=== PATIENT | female | born 1950 | race Caucasian/White ===

== ENCOUNTER 2018-05-15 10:03 | Inpatient (IN) | payer OTHER ==
[2018-05-15 10:37] LABS: ADD MAN DIFF? NO
[2018-05-15 10:44] LABS: WHITE BLOOD COUNT 7.4 10^3/ul (4.8-10.8)
[2018-05-15 10:44] LABS: BASOPHIL # 0.1 10^3/ul (0.0-0.1); BASOPHILS % 0.7 % (0.0-2.0); EOSINOPHILS # 0.3 10^3/ul (0.0-0.5); EOSINOPHILS % 3.4 % (0.0-7.0); HEMATOCRIT 43.4 % (37.0-47.0); HEMOGLOBIN 13.3 g/dl (12.0-16.0); LYMPHOCYTES # 2.3 10^3/ul (0.8-2.9); LYMPHOCYTES % 31.8 % (15.0-51.0); MEAN CORPUSCULAR HEMOGLOBIN 28.9 pg (29.0-33.0); MEAN CORPUSCULAR HGB CONC 30.6 g/dl (32.0-37.0); MEAN CORPUSCULAR VOLUME 94.3 fl (82.0-101.0); MEAN PLATELET VOLUME 10.3 fl (7.4-10.4); MONOCYTE # 0.5 10^3/ul (0.3-0.9); MONOCYTES % 6.4 % (0.0-11.0); NEUTROPHIL # 4.2 10^3/ul (1.6-7.5); NEUTROPHILS % 57.4 % (39.0-77.0); PLATELET COUNT 287 10^3/UL (140-415); RED CELL DISTRIBUTION WIDTH 13.5 % (11.5-14.5)
[2018-05-15] MEDS: SOD CHLORIDE 0.9% 1,000 ML IV ×2 (10:47→18:46)
[2018-05-15 11:03] LABS: ALBUMIN 4.3 g/dl (3.3-4.9); ALKALINE PHOSPHATASE 99 IU/L (42-121); ANION GAP 10 (5-13); ASPARTATE AMINO TRANSFERASE 19 IU/L (15-46); BILIRUBIN,INDIRECT 0.1 mg/dl (0-1.1); BILIRUBIN,TOTAL 0.1 mg/dl (0.2-1.3); BLOOD UREA NITROGEN 15 mg/dl (7-20); CALCIUM 10.7 mg/dl (8.4-10.2); CARBON DIOXIDE 28 mmol/L (21-31); CHLORIDE 107 mmol/L (97-110); CREATININE 0.77 mg/dl (0.44-1.00); Estimated GFR > 60 mL/min (>60); GLUCOSE 110 mg/dl (70-220); POTASSIUM 3.8 mmol/L (3.5-5.1); SODIUM 145 mmol/L (135-144); TOTAL PROTEIN 8.6 g/dl (6.1-8.1)
[2018-05-15 11:05] LABS: ACETAMINOPHEN < 10.0 ug/ml (10.0-30.0); ALANINE AMINOTRANSFERASE < 6 IU/L (13-69); ETHANOL < 10.0 mg/dl (0-0); SALICYLATE < 1.0 mg/dl (5.0-30.0)
[2018-05-15 11:19] LABS: ADD UMIC YES; UR ASCORBIC ACID 20 mg/dL (NEGATIVE); UR BACTERIA FEW /HPF (NONE SEEN); UR BILIRUBIN (Dip) NEGATIVE (NEGATIVE); UR BLOOD (Dip) 1+ mg/dL (NEGATIVE); UR BUDDING YEAST FEW /HPF (NONE SEEN); UR CLARITY CLOUDY (CLEAR); UR COLOR YELLOW (YELLOW); UR GLUCOSE (Dip) NEGATIVE (NEGATIVE); UR KETONES (Dip) NEGATIVE (NEGATIVE); UR LEUKOCYTE ESTERASE (Dip) 3+ Leu/ul (NEGATIVE); UR MUCUS FEW /HPF (NONE SEEN); UR NITRITE (Dip) NEGATIVE (NEGATIVE); UR RBC 18 /HPF (0-5); UR SPECIFIC GRAVITY (Dip) 1.014 (1.003-1.030); UR TOTAL PROTEIN (Dip) 2+ mg/dl (NEGATIVE); UR UROBILINOGEN (Dip) NEGATIVE (NEGATIVE); UR WBC > 182 /HPF (0-5)
[2018-05-15] MEDS ORDERED: CEFTRIAXONE 1 GM INJ IM (11:30)
[2018-05-15 11:36] LABS: FREE THYROXINE INDEX (Calc) 2.43 ug/ml (0.65-3.89); T3 UPTAKE 28.2 % (23.5-40.5); T4 (THYROXINE) 8.6 ug/dl (5.5-11.0)
[2018-05-15 11:41] LABS: AMPHETAMINE/METHAMPHETAMINE Negative (NEGATIVE); BARBITURATES Positive (NEGATIVE); BENZODIAZEPINES Negative (NEGATIVE); CANNABINOIDS Negative (NEGATIVE); COCAINE Negative (NEGATIVE); OPIATES Negative (NEGATIVE)
[2018-05-15] MEDS: morphine 2 MG INJ IV (11:50)
[2018-05-15] MEDS: CEFTRIAXONE 1 GM/50 ML (PMX) 50 ML IVPB (11:51)
[2018-05-15] MEDS: AZITHROMYCIN 500MG/NS (PMX) 250 ML IVPB (12:18)
[2018-05-15] MEDS ORDERED: ONDANSETRON 4 MG INJ IV ×2 (13:30→14:30)
[2018-05-15] MEDS ORDERED: ACETAMINOPHEN 325 MG TAB PO (13:30)
[2018-05-15] MEDS ORDERED: NACL 0.9% 3 ML SYG IV (14:30)
[2018-05-15] MEDS ORDERED: PENDING SANTYL ORDER FOR WOUND CARE XX (17:00)
[2018-05-15] MEDS: RIVAROXABAN 20 MG TABLET PO (17:38)
[2018-05-15 17:56] LABS: LACTIC ACID 2.4 mmol/L (0.5-2.0)
[2018-05-15] MEDS: CALCIUM CARBONATE 1.25 GM TAB PO (20:54)
[2018-05-15] MEDS: ACETAMINOPHEN 325 MG TAB PO (20:54)
[2018-05-15] MEDS: QUETIAPINE 25 MG TAB PO (20:54)
[2018-05-15] MEDS: PRIMIDONE 50 MG TAB PO (20:54)
[2018-05-15] MEDS: LEVETIRACETAM 500 MG TAB PO (20:54)
[2018-05-15] MEDS: SENNA TAB PO (20:54)
[2018-05-15] MEDS: BACLOFEN 10 MG TAB PO (20:54)
[2018-05-16] MEDS: ACETAMINOPHEN 325 MG TAB PO ×2 (03:57→13:00)
[2018-05-16 05:46] LABS: ADD MAN DIFF? NO
[2018-05-16 05:52] LABS: BASOPHIL # 0.1 10^3/ul (0.0-0.1); BASOPHILS % 1.1 % (0.0-2.0); EOSINOPHILS # 0.3 10^3/ul (0.0-0.5); EOSINOPHILS % 4.8 % (0.0-7.0); HEMATOCRIT 36.3 % (37.0-47.0); HEMOGLOBIN 11.3 g/dl (12.0-16.0); LYMPHOCYTES # 2.1 10^3/ul (0.8-2.9); LYMPHOCYTES % 32.4 % (15.0-51.0); MEAN CORPUSCULAR HGB CONC 31.1 g/dl (32.0-37.0); MEAN CORPUSCULAR VOLUME 93.3 fl (82.0-101.0); MEAN PLATELET VOLUME 10.1 fl (7.4-10.4); MONOCYTE # 0.4 10^3/ul (0.3-0.9); MONOCYTES % 5.9 % (0.0-11.0); NEUTROPHIL # 3.5 10^3/ul (1.6-7.5); NEUTROPHILS % 55.3 % (39.0-77.0); PLATELET COUNT 271 10^3/UL (140-415); RED BLOOD COUNT 3.89 10^6/ul (4.20-5.40); RED CELL DISTRIBUTION WIDTH 13.5 % (11.5-14.5)
[2018-05-16 05:52] LABS: WHITE BLOOD COUNT 6.4 10^3/ul (4.8-10.8)
[2018-05-16 06:24] LABS: CHOL/HDL RATIO 4.5 RATIO; CHOLESTEROL 206 mg/dl (100-200); HDL CHOLESTEROL 45 mg/dl (33-92); LDL CHOLESTEROL,CALCULATED 140 mg/dl; MAGNESIUM 1.9 mg/dl (1.7-2.5); TRIGLYCERIDES 107 mg/dl (0-149)
[2018-05-16 06:24] LABS: PHOSPHORUS 4.1 mg/dl (2.5-4.9)
[2018-05-16 06:32] LABS: ALANINE AMINOTRANSFERASE 12 IU/L (13-69); ALBUMIN 3.5 g/dl (3.3-4.9); ALBUMIN/GLOBULIN RATIO 0.94; ALKALINE PHOSPHATASE 71 IU/L (42-121); ANION GAP 5 (5-13); ASPARTATE AMINO TRANSFERASE 15 IU/L (15-46); BLOOD UREA NITROGEN 13 mg/dl (7-20); CALCIUM 9.4 mg/dl (8.4-10.2); CARBON DIOXIDE 26 mmol/L (21-31); CHLORIDE 116 mmol/L (97-110); Estimated GFR > 60 mL/min (>60); GLUCOSE 104 mg/dl (70-220); POTASSIUM 3.7 mmol/L (3.5-5.1); SODIUM 147 mmol/L (135-144); TOTAL PROTEIN 7.2 g/dl (6.1-8.1)
[2018-05-16] MEDS: CALCIUM CARBONATE 1.25 GM TAB PO ×2 (08:45→21:06)
[2018-05-16] MEDS: LEVETIRACETAM 500 MG TAB PO ×2 (08:45→21:07)
[2018-05-16] MEDS: BACLOFEN 10 MG TAB PO ×3 (08:45→21:07)
[2018-05-16] MEDS: SENNA TAB PO ×2 (08:45→21:07)
[2018-05-16] MEDS: QUETIAPINE 25 MG TAB PO ×2 (08:45→21:07)
[2018-05-16] MEDS: DULOXETINE 30 MG CAP DR PO (08:45)
[2018-05-16] MEDS: SOD CHLORIDE 0.9% 1,000 ML IV (10:33)
[2018-05-16] MEDS ORDERED: ASPIRIN 81 MG TAB PO (12:00)
[2018-05-16] MEDS: CEFTRIAXONE 1 GM/50 ML (PMX) 50 ML IVPB (12:57)
[2018-05-16] MEDS: AZITHROMYCIN 500MG/NS (PMX) 250 ML IVPB (13:57)
[2018-05-16] MEDS: RIVAROXABAN 20 MG TABLET PO (18:05)
[2018-05-16] MEDS: PRIMIDONE 50 MG TAB PO (21:07)
[2018-05-16] MEDS: ATORVASTATIN 40 MG TAB PO (21:07)
[2018-05-17] MEDS: ACETAMINOPHEN 325 MG TAB PO (02:25)
[2018-05-17 06:26] LABS: ADD MAN DIFF? NO
[2018-05-17 06:29] LABS: BASOPHILS % 0.8 % (0.0-2.0); EOSINOPHILS # 0.2 10^3/ul (0.0-0.5); EOSINOPHILS % 4.5 % (0.0-7.0); HEMATOCRIT 33.2 % (37.0-47.0); HEMOGLOBIN 10.5 g/dl (12.0-16.0); LYMPHOCYTES # 1.8 10^3/ul (0.8-2.9); LYMPHOCYTES % 33.6 % (15.0-51.0); MEAN CORPUSCULAR HEMOGLOBIN 29.6 pg (29.0-33.0); MEAN CORPUSCULAR HGB CONC 31.6 g/dl (32.0-37.0); MEAN CORPUSCULAR VOLUME 93.5 fl (82.0-101.0); MEAN PLATELET VOLUME 10.3 fl (7.4-10.4); MONOCYTE # 0.4 10^3/ul (0.3-0.9); MONOCYTES % 7.4 % (0.0-11.0); NEUTROPHIL # 2.8 10^3/ul (1.6-7.5); NEUTROPHILS % 53.5 % (39.0-77.0); PLATELET COUNT 256 10^3/UL (140-415); RED BLOOD COUNT 3.55 10^6/ul (4.20-5.40); RED CELL DISTRIBUTION WIDTH 12.9 % (11.5-14.5)
[2018-05-17 06:29] LABS: WHITE BLOOD COUNT 5.3 10^3/ul (4.8-10.8)
[2018-05-17 06:57] LABS: ANION GAP 4 (5-13); BLOOD UREA NITROGEN 13 mg/dl (7-20); CARBON DIOXIDE 27 mmol/L (21-31); CHLORIDE 113 mmol/L (97-110); CREATININE 0.55 mg/dl (0.44-1.00); Estimated GFR > 60 mL/min (>60); GLUCOSE 92 mg/dl (70-220); POTASSIUM 3.4 mmol/L (3.5-5.1); SODIUM 144 mmol/L (135-144)
[2018-05-17] MEDS: BACLOFEN 10 MG TAB PO ×3 (09:41→21:49)
[2018-05-17] MEDS: LEVETIRACETAM 500 MG TAB PO ×2 (09:41→21:50)
[2018-05-17] MEDS: DULOXETINE 30 MG CAP DR PO (09:41)
[2018-05-17] MEDS: QUETIAPINE 25 MG TAB PO ×2 (09:42→21:50)
[2018-05-17] MEDS: CALCIUM CARBONATE 1.25 GM TAB PO ×2 (09:42→21:50)
[2018-05-17] MEDS: SENNA TAB PO ×2 (09:42→21:49)
[2018-05-17] MEDS: AZITHROMYCIN 500MG/NS (PMX) 250 ML IVPB (11:37)
[2018-05-17] MEDS: CEFTRIAXONE 1 GM/50 ML (PMX) 50 ML IVPB (13:04)
[2018-05-17] MEDS: RIVAROXABAN 20 MG TABLET PO (18:18)
[2018-05-17] MEDS: POTASSIUM CHLORIDE (SR) 20 MEQ TAB PO (18:18)
[2018-05-17] MEDS: PRIMIDONE 50 MG TAB PO (21:50)
[2018-05-17] MEDS: ATORVASTATIN 40 MG TAB PO (21:50)
[2018-05-18 07:07] LABS: ANION GAP 6 (5-13); BLOOD UREA NITROGEN 11 mg/dl (7-20); CALCIUM 9.2 mg/dl (8.4-10.2); CARBON DIOXIDE 27 mmol/L (21-31); CHLORIDE 110 mmol/L (97-110); CREATININE 0.51 mg/dl (0.44-1.00); Estimated GFR > 60 mL/min (>60); GLUCOSE 90 mg/dl (70-220); POTASSIUM 3.7 mmol/L (3.5-5.1); SODIUM 143 mmol/L (135-144)
[2018-05-18] MEDS: DULOXETINE 30 MG CAP DR PO (09:51)
[2018-05-18] MEDS: LEVETIRACETAM 500 MG TAB PO ×2 (09:51→21:30)
[2018-05-18] MEDS: SENNA TAB PO ×2 (09:52→21:30)
[2018-05-18] MEDS: QUETIAPINE 25 MG TAB PO ×2 (09:52→21:31)
[2018-05-18] MEDS: CALCIUM CARBONATE 1.25 GM TAB PO ×2 (09:52→21:30)
[2018-05-18] MEDS: BACLOFEN 10 MG TAB PO ×3 (09:52→21:30)
[2018-05-18] MEDS: MEROPENEM 1 GM/50ML(PMX) 50 ML IVPB ×2 (13:09→21:30)
[2018-05-18 13:43] LABS: ADD UMIC YES; UR ASCORBIC ACID NEGATIVE (NEGATIVE); UR BACTERIA FEW /HPF (NONE SEEN); UR BILIRUBIN (Dip) NEGATIVE (NEGATIVE); UR BLOOD (Dip) 1+ mg/dL (NEGATIVE); UR CLARITY SLIGHTLY CLOUDY (CLEAR); UR COLOR YELLOW (YELLOW); UR GLUCOSE (Dip) NEGATIVE (NEGATIVE); UR KETONES (Dip) NEGATIVE (NEGATIVE); UR LEUKOCYTE ESTERASE (Dip) 3+ Leu/ul (NEGATIVE); UR MUCUS FEW /HPF (NONE SEEN); UR NITRITE (Dip) NEGATIVE (NEGATIVE); UR RBC 31 /HPF (0-5); UR SPECIFIC GRAVITY (Dip) 1.015 (1.003-1.030); UR TOTAL PROTEIN (Dip) NEGATIVE (NEGATIVE); UR UROBILINOGEN (Dip) NEGATIVE (NEGATIVE); UR WBC 115 /HPF (0-5)
[2018-05-18] MEDS: RIVAROXABAN 20 MG TABLET PO (17:45)
[2018-05-18] MEDS: ACETAMINOPHEN 325 MG TAB PO (17:45)
[2018-05-18] MEDS: PHENAZOPYRIDINE 100 MG TAB PO (17:50)
[2018-05-18] MEDS: ATORVASTATIN 40 MG TAB PO (21:30)
[2018-05-18] MEDS: PRIMIDONE 50 MG TAB PO (21:30)
[2018-05-19] MEDS: MEROPENEM 1 GM/50ML(PMX) 50 ML IVPB ×3 (05:15→22:04)
[2018-05-19 05:49] LABS: ADD MAN DIFF? NO
[2018-05-19 05:53] LABS: BASOPHILS % 0.5 % (0.0-2.0); EOSINOPHILS # 0.2 10^3/ul (0.0-0.5); EOSINOPHILS % 3.7 % (0.0-7.0); LYMPHOCYTES # 2.4 10^3/ul (0.8-2.9); LYMPHOCYTES % 42.7 % (15.0-51.0); MEAN CORPUSCULAR HEMOGLOBIN 28.8 pg (29.0-33.0); MEAN CORPUSCULAR HGB CONC 31.4 g/dl (32.0-37.0); MEAN CORPUSCULAR VOLUME 91.6 fl (82.0-101.0); MEAN PLATELET VOLUME 10.2 fl (7.4-10.4); MONOCYTE # 0.4 10^3/ul (0.3-0.9); MONOCYTES % 6.4 % (0.0-11.0); NEUTROPHIL # 2.6 10^3/ul (1.6-7.5); NEUTROPHILS % 46.3 % (39.0-77.0); PLATELET COUNT 278 10^3/UL (140-415); RED BLOOD COUNT 3.82 10^6/ul (4.20-5.40); RED CELL DISTRIBUTION WIDTH 13.2 % (11.5-14.5)
[2018-05-19 05:53] LABS: WHITE BLOOD COUNT 5.7 10^3/ul (4.8-10.8)
[2018-05-19 06:26] LABS: ANION GAP 6 (5-13); BLOOD UREA NITROGEN 11 mg/dl (7-20); CARBON DIOXIDE 26 mmol/L (21-31); CHLORIDE 109 mmol/L (97-110); Estimated GFR > 60 mL/min (>60); GLUCOSE 89 mg/dl (70-220); POTASSIUM 3.6 mmol/L (3.5-5.1); SODIUM 141 mmol/L (135-144)
[2018-05-19] MEDS: BACLOFEN 10 MG TAB PO ×3 (09:48→21:43)
[2018-05-19] MEDS: SENNA TAB PO ×2 (09:48→21:42)
[2018-05-19] MEDS: QUETIAPINE 25 MG TAB PO ×2 (09:50→21:42)
[2018-05-19] MEDS: DULOXETINE 30 MG CAP DR PO (09:51)
[2018-05-19] MEDS: LEVETIRACETAM 500 MG TAB PO ×2 (09:51→21:42)
[2018-05-19] MEDS: CALCIUM CARBONATE 1.25 GM TAB PO ×2 (09:51→21:42)
[2018-05-19] MEDS: RIVAROXABAN 20 MG TABLET PO (18:21)
[2018-05-19] MEDS: ATORVASTATIN 40 MG TAB PO (21:42)
[2018-05-19] MEDS: PRIMIDONE 50 MG TAB PO (21:42)
[2018-05-20] MEDS ORDERED: GLUCOSE GEL 15 GRAM TUBE PO ×2 (02:30)
[2018-05-20] MEDS ORDERED: GLUCOSE GEL 15 GRAM TUBE BUCCAL (02:30)
[2018-05-20] MEDS ORDERED: INSULIN ASPART [NOVOLOG] 3 ML PEN SC (02:30)
[2018-05-20] MEDS ORDERED: DEXTROSE 50% 50 ML SYRINGE IV ×2 (02:30)
[2018-05-20] MEDS ORDERED: Insulin NOVOLOG SS MODERATE Algorithm(NPO/TPN/ENTERAL FEEDS) SC (02:30)
[2018-05-20] MEDS ORDERED: GLUCAGON 1 MG INJ IM (02:30)
[2018-05-20] MEDS: MEROPENEM 1 GM/50ML(PMX) 50 ML IVPB (05:32)
[2018-05-20 06:12] LABS: ADD MAN DIFF? NO
[2018-05-20 06:16] LABS: BASOPHIL # 0.1 10^3/ul (0.0-0.1); BASOPHILS % 0.8 % (0.0-2.0); EOSINOPHILS # 0.2 10^3/ul (0.0-0.5); EOSINOPHILS % 2.9 % (0.0-7.0); HEMATOCRIT 35.5 % (37.0-47.0); HEMOGLOBIN 11.5 g/dl (12.0-16.0); LYMPHOCYTES # 2.2 10^3/ul (0.8-2.9); LYMPHOCYTES % 34.2 % (15.0-51.0); MEAN CORPUSCULAR HEMOGLOBIN 29.4 pg (29.0-33.0); MEAN CORPUSCULAR HGB CONC 32.4 g/dl (32.0-37.0); MEAN CORPUSCULAR VOLUME 90.8 fl (82.0-101.0); MEAN PLATELET VOLUME 9.9 fl (7.4-10.4); MONOCYTE # 0.4 10^3/ul (0.3-0.9); MONOCYTES % 5.6 % (0.0-11.0); NEUTROPHIL # 3.6 10^3/ul (1.6-7.5); NEUTROPHILS % 56.2 % (39.0-77.0); PLATELET COUNT 275 10^3/UL (140-415); RED BLOOD COUNT 3.91 10^6/ul (4.20-5.40); RED CELL DISTRIBUTION WIDTH 13.4 % (11.5-14.5)
[2018-05-20 06:16] LABS: WHITE BLOOD COUNT 6.5 10^3/ul (4.8-10.8)
[2018-05-20 06:40] LABS: ANION GAP 5 (5-13); BLOOD UREA NITROGEN 9 mg/dl (7-20); CARBON DIOXIDE 27 mmol/L (21-31); CHLORIDE 106 mmol/L (97-110); CREATININE 0.52 mg/dl (0.44-1.00); Estimated GFR > 60 mL/min (>60); GLUCOSE 87 mg/dl (70-220); POTASSIUM 3.9 mmol/L (3.5-5.1); SODIUM 138 mmol/L (135-144)
[2018-05-20] MEDS: QUETIAPINE 25 MG TAB PO ×2 (08:48→20:58)
[2018-05-20] MEDS: LEVETIRACETAM 500 MG TAB PO ×2 (08:48→20:57)
[2018-05-20] MEDS: DULOXETINE 30 MG CAP DR PO (08:49)
[2018-05-20] MEDS: CALCIUM CARBONATE 1.25 GM TAB PO ×2 (08:49→20:58)
[2018-05-20] MEDS: SENNA TAB PO ×2 (08:49→20:58)
[2018-05-20] MEDS: BACLOFEN 10 MG TAB PO ×3 (08:49→20:58)
[2018-05-20] MEDS: ERTAPENEM SODIUM 1 GM in SOD CHLORIDE 0.9% 100 ML IVPB (12:53)
[2018-05-20] MEDS: RIVAROXABAN 20 MG TABLET PO (17:54)
[2018-05-20] MEDS: ATORVASTATIN 40 MG TAB PO (20:58)
[2018-05-20] MEDS: PRIMIDONE 50 MG TAB PO (20:59)
[2018-05-21] MEDS: CALCIUM CARBONATE 1.25 GM TAB PO (08:47)
[2018-05-21] MEDS: DULOXETINE 30 MG CAP DR PO (08:47)
[2018-05-21] MEDS: LEVETIRACETAM 500 MG TAB PO (08:47)
[2018-05-21] MEDS: SENNA TAB PO (08:47)
[2018-05-21] MEDS: BACLOFEN 10 MG TAB PO ×2 (08:47→12:43)
[2018-05-21] MEDS: QUETIAPINE 25 MG TAB PO (08:48)
[2018-05-21] MEDS: ERTAPENEM SODIUM 1 GM in SOD CHLORIDE 0.9% 100 ML IVPB (12:43)
[2018-05-21] MEDS: RIVAROXABAN 20 MG TABLET PO (17:19)
== END 2018-05-21 18:40 | DRG 91 ==
LOC: E/R 10:03 → PP2 13:20
DX: G92 Toxic encephalopathy (principal); J18.9 Pneumonia, unspecified organism; N39.0 Urinary tract infection, site not specified; I69.354 Hemiplegia and hemiparesis following cerebral infarction affecting left non-dominant side; Z79.02 Long term (current) use of antithrombotics/antiplatelets; I10 Essential (primary) hypertension; G40.909 Epilepsy, unspecified, not intractable, without status epilepticus; B96.1 Klebsiella pneumoniae [K. pneumoniae] as the cause of diseases classified elsewhere; B95.2 Enterococcus as the cause of diseases classified elsewhere; B96.20 Unspecified Escherichia coli [E. coli] as the cause of diseases classified elsewhere
CPT/HCPCS: 36415; 70450; 71045; 80048; 80053; 80061; 80307; 81001; 82962; 83605; 83735; 84100; 84436; 84479; 85025; 87040; 87081; 87086; 87400; 92610; 93005; 96374; 96375; 99285-25

== ENCOUNTER 2018-07-29 19:56 | Inpatient (IN) | payer OTHER, MEDICAID, MEDICARE ==
[2018-07-29] MEDS: SOD CHLORIDE 0.9% 1,000 ML IV ×2 (20:25→22:15)
[2018-07-29 20:39] LABS: WHITE BLOOD COUNT 10.9 10^3/ul (4.8-10.8)
[2018-07-29 20:39] LABS: ADD MAN DIFF? NO; BASOPHIL # 0.1 10^3/ul (0.0-0.1); BASOPHILS % 0.6 % (0.0-2.0); EOSINOPHILS # 0.3 10^3/ul (0.0-0.5); EOSINOPHILS % 2.8 % (0.0-7.0); HEMATOCRIT 33.4 % (37.0-47.0); HEMOGLOBIN 10.6 g/dl (12.0-16.0); LYMPHOCYTES # 2.4 10^3/ul (0.8-2.9); LYMPHOCYTES % 21.7 % (15.0-51.0); MEAN CORPUSCULAR HEMOGLOBIN 28.9 pg (29.0-33.0); MEAN CORPUSCULAR HGB CONC 31.7 g/dl (32.0-37.0); MEAN PLATELET VOLUME 10.9 fl (7.4-10.4); MONOCYTE # 0.5 10^3/ul (0.3-0.9); MONOCYTES % 4.2 % (0.0-11.0); NEUTROPHIL # 7.6 10^3/ul (1.6-7.5); NEUTROPHILS % 70.2 % (39.0-77.0); PLATELET COUNT 227 10^3/UL (140-415); RED BLOOD COUNT 3.67 10^6/ul (4.20-5.40); RED CELL DISTRIBUTION WIDTH 13.8 % (11.5-14.5)
[2018-07-29 20:41] LABS: URINE PH (Dip) POC 6.5 (5.0-8.5)
[2018-07-29 20:41] LABS: URINE BLOOD (Dip) POC Trace-intact (NEGATIVE); URINE GLUCOSE (Dip) POC Negative (NEGATIVE); URINE KETONES (Dip) POC Trace (NEGATIVE); URINE LEUKOCYTE EST (Dip) POC 3+ (NEGATIVE); URINE NITRITE (Dip) POC Positive (NEGATIVE); URINE TOTAL PROTEIN POC 2+ (NEGATIVE)
[2018-07-29 20:43] LABS: INR 1.29; PROTIME 16.2 Sec (11.9-14.9); PT RATIO 1.3
[2018-07-29 20:44] LABS: PARTIAL THROMBOPLASTIN TIME 47.3 Sec (23.0-35.0)
[2018-07-29 20:54] LABS: ALANINE AMINOTRANSFERASE 16 IU/L (13-69); ALBUMIN 2.9 g/dl (3.3-4.9); ALKALINE PHOSPHATASE 61 IU/L (42-121); AMYLASE 85 U/L (11-123); ANION GAP 7 (5-13); ASPARTATE AMINO TRANSFERASE 22 IU/L (15-46); BLOOD UREA NITROGEN 17 mg/dl (7-20); CALCIUM 8.7 mg/dl (8.4-10.2); CARBON DIOXIDE 25 mmol/L (21-31); CHLORIDE 110 mmol/L (97-110); CREATININE 0.72 mg/dl (0.44-1.00); Estimated GFR > 60 mL/min (>60); GLUCOSE 109 mg/dl (70-220); LIPASE 56 U/L (23-300); POTASSIUM 4.1 mmol/L (3.5-5.1); SODIUM 142 mmol/L (135-144); TOTAL PROTEIN 6.1 g/dl (6.1-8.1)
[2018-07-29 21:02] LABS: UR BACTERIA MANY /HPF (NONE SEEN); UR MUCUS MANY /HPF (NONE SEEN); UR WBC > 182 /HPF (0-5)
[2018-07-29 21:05] LABS: TROPONIN-I < 0.012 ng/ml (0.000-0.120)
[2018-07-29] MEDS: CEFTRIAXONE 1 GM/50 ML (PMX) 50 ML IVPB (21:48)
[2018-07-29 22:15] LABS: ADD UMIC YES
[2018-07-29 22:16] LABS: UR CLARITY SLIGHTLY CLOUDY (CLEAR); UR COLOR YELLOW (YELLOW); UR GLUCOSE (Dip) NEGATIVE (NEGATIVE); UR KETONES (Dip) NEGATIVE (NEGATIVE); UR SPECIFIC GRAVITY (Dip) 1.025 (1.003-1.030); UR TOTAL PROTEIN (Dip) 2+ mg/dl (NEGATIVE)
[2018-07-29 22:17] LABS: UR ASCORBIC ACID 40 mg/dL (NEGATIVE); UR BILIRUBIN (Dip) NEGATIVE (NEGATIVE); UR BLOOD (Dip) NEGATIVE (NEGATIVE); UR LEUKOCYTE ESTERASE (Dip) 3+ Leu/ul (NEGATIVE); UR NITRITE (Dip) NEGATIVE (NEGATIVE); UR UROBILINOGEN (Dip) NEGATIVE (NEGATIVE)
[2018-07-29 22:27] LABS: UR RBC 5 /HPF (0-5)
[2018-07-29] MEDS: VANCOMYCIN 1 GM (PMX) 250 ML IVPB (23:58)
[2018-07-30] MEDS: CEFEPIME 1GM/50 ML (PMX) 50 ML IVPB (00:03)
[2018-07-30] MEDS: SOD CHLORIDE 0.9% 1,000 ML IV (00:15)
[2018-07-30] MEDS: ACETAMINOPHEN 500 MG TAB PO (00:17)
[2018-07-30] MEDS ORDERED: ALBUTEROL/IPRATROPIUM (NEB) 3 ML AMP NEB (01:00)
[2018-07-30] MEDS: ALBUTEROL/IPRATROPIUM (NEB) 3 ML AMP HHN (01:58)
[2018-07-30] MEDS: SOD CHLORIDE 0.9% 500 ML IV (03:23)
[2018-07-30] MEDS: KETOROLAC 30 MG INJ IV (03:23)
[2018-07-30] MEDS: HYDROCODONE/APAP (5/325) TAB PO ×2 (03:32→17:30)
[2018-07-30] MEDS: NORepinephrine 8MG/250 ML (PMX 250 ML IV (05:00)
[2018-07-30 05:40] LABS: ADD MAN DIFF? NO
[2018-07-30 05:48] LABS: WHITE BLOOD COUNT 7.1 10^3/ul (4.8-10.8)
[2018-07-30 05:48] LABS: BASOPHILS % 0.6 % (0.0-2.0); EOSINOPHILS # 0.1 10^3/ul (0.0-0.5); EOSINOPHILS % 1.7 % (0.0-7.0); HEMOGLOBIN 9.5 g/dl (12.0-16.0); LYMPHOCYTES % 27.9 % (15.0-51.0); MEAN CORPUSCULAR HEMOGLOBIN 28.5 pg (29.0-33.0); MEAN CORPUSCULAR HGB CONC 30.6 g/dl (32.0-37.0); MEAN CORPUSCULAR VOLUME 93.1 fl (82.0-101.0); MONOCYTE # 0.5 10^3/ul (0.3-0.9); MONOCYTES % 6.6 % (0.0-11.0); NEUTROPHIL # 4.5 10^3/ul (1.6-7.5); NEUTROPHILS % 62.8 % (39.0-77.0); PLATELET COUNT 183 10^3/UL (140-415); RED BLOOD COUNT 3.33 10^6/ul (4.20-5.40)
[2018-07-30] MEDS: MIDODRINE HCL 10 MG TABLET PO ×3 (06:16→17:34)
[2018-07-30 06:29] LABS: ALANINE AMINOTRANSFERASE 18 IU/L (13-69); ALBUMIN 2.5 g/dl (3.3-4.9); ALBUMIN/GLOBULIN RATIO 0.89; ALKALINE PHOSPHATASE 59 IU/L (42-121); ANION GAP 4 (5-13); ASPARTATE AMINO TRANSFERASE 13 IU/L (15-46); BLOOD UREA NITROGEN 12 mg/dl (7-20); CALCIUM 7.8 mg/dl (8.4-10.2); CARBON DIOXIDE 23 mmol/L (21-31); CHLORIDE 116 mmol/L (97-110); CREATININE 0.62 mg/dl (0.44-1.00); Estimated GFR > 60 mL/min (>60); GLUCOSE 103 mg/dl (70-220); MAGNESIUM 1.9 mg/dl (1.7-2.5); POTASSIUM 3.7 mmol/L (3.5-5.1); SODIUM 143 mmol/L (135-144); TOTAL PROTEIN 5.3 g/dl (6.1-8.1)
[2018-07-30 06:40] LABS: HEMOGLOBIN A1C 5.1 % (0-5.9)
[2018-07-30] MEDS: MULTIVITAMINS/MINERALS TAB PO (09:00)
[2018-07-30] MEDS: FAMOTIDINE 20 MG INJ IV ×2 (12:45→20:12)
[2018-07-30] MEDS: MEROPENEM 1 GM/50ML(PMX) 50 ML IVPB ×2 (12:46→17:34)
[2018-07-30] MEDS: LEVETIRACETAM 500 MG TAB PO ×2 (12:47→20:12)
[2018-07-30] MEDS: GABAPENTIN 300 MG CAP PO ×3 (12:47→20:12)
[2018-07-30] MEDS: CALCIUM CARBONATE 1.25 GM TAB PO ×2 (12:47→20:12)
[2018-07-30] MEDS: clonAZEPAM 0.5 MG TAB PO ×2 (12:47→20:12)
[2018-07-30] MEDS: QUETIAPINE 25 MG TAB PO ×2 (12:47→20:12)
[2018-07-30] MEDS: SENNA TAB PO ×2 (12:47→20:13)
[2018-07-30] MEDS: DULOXETINE 30 MG CAP DR PO (12:48)
[2018-07-30] MEDS: BACLOFEN 10 MG TAB PO ×3 (12:54→20:12)
[2018-07-30] MEDS: RIVAROXABAN 20 MG TABLET PO (17:34)
[2018-07-31] MEDS: MEROPENEM 1 GM/50ML(PMX) 50 ML IVPB ×3 (00:15→18:48)
[2018-07-31] MEDS: SOD CHLORIDE 0.9% 250 ML IV (00:22)
[2018-07-31] MEDS: NORepinephrine 8MG/250 ML (PMX 250 ML IV (03:43)
[2018-07-31 05:19] LABS: ADD MAN DIFF? NO
[2018-07-31 05:29] LABS: BASOPHIL # 0.1 10^3/ul (0.0-0.1); EOSINOPHILS # 0.3 10^3/ul (0.0-0.5); EOSINOPHILS % 4.2 % (0.0-7.0); HEMATOCRIT 34.4 % (37.0-47.0); HEMOGLOBIN 10.9 g/dl (12.0-16.0); LYMPHOCYTES # 1.6 10^3/ul (0.8-2.9); LYMPHOCYTES % 27.1 % (15.0-51.0); MEAN CORPUSCULAR HEMOGLOBIN 28.8 pg (29.0-33.0); MEAN CORPUSCULAR HGB CONC 31.7 g/dl (32.0-37.0); MEAN PLATELET VOLUME 10.8 fl (7.4-10.4); MONOCYTE # 0.3 10^3/ul (0.3-0.9); MONOCYTES % 5.2 % (0.0-11.0); NEUTROPHIL # 3.7 10^3/ul (1.6-7.5); RED BLOOD COUNT 3.78 10^6/ul (4.20-5.40); RED CELL DISTRIBUTION WIDTH 14.2 % (11.5-14.5)
[2018-07-31 05:53] LABS: PLATELET COUNT 220 10^3/UL (140-415)
[2018-07-31] MEDS: MIDODRINE HCL 10 MG TABLET PO ×3 (06:02→18:47)
[2018-07-31 06:04] LABS: ANION GAP 7 (5-13); BLOOD UREA NITROGEN 12 mg/dl (7-20); CALCIUM 8.3 mg/dl (8.4-10.2); CARBON DIOXIDE 21 mmol/L (21-31); CHLORIDE 115 mmol/L (97-110); CREATININE 0.54 mg/dl (0.44-1.00); Estimated GFR > 60 mL/min (>60); GLUCOSE 81 mg/dl (70-220); SODIUM 143 mmol/L (135-144)
[2018-07-31 06:22] LABS: MAGNESIUM 1.9 mg/dl (1.7-2.5)
[2018-07-31 06:22] LABS: PHOSPHORUS 2.6 mg/dl (2.5-4.9)
[2018-07-31] MEDS: FAMOTIDINE 20 MG INJ IV ×2 (09:15→21:17)
[2018-07-31] MEDS: SENNA TAB PO ×2 (09:15→21:16)
[2018-07-31] MEDS: LEVETIRACETAM 500 MG TAB PO ×2 (09:16→21:16)
[2018-07-31] MEDS: clonAZEPAM 0.5 MG TAB PO ×2 (09:16→21:16)
[2018-07-31] MEDS: DULOXETINE 30 MG CAP DR PO (09:16)
[2018-07-31] MEDS: BACLOFEN 10 MG TAB PO ×3 (09:16→21:17)
[2018-07-31] MEDS: CALCIUM CARBONATE 1.25 GM TAB PO ×2 (09:16→21:16)
[2018-07-31] MEDS: MULTIVITAMINS/MINERALS TAB PO (09:16)
[2018-07-31] MEDS: GABAPENTIN 300 MG CAP PO ×3 (09:17→21:17)
[2018-07-31] MEDS: QUETIAPINE 25 MG TAB PO ×2 (09:17→21:17)
[2018-07-31] MEDS ORDERED: LORAZEPAM 2 MG INJ IV (11:00)
[2018-07-31] MEDS: RIVAROXABAN 20 MG TABLET PO (18:48)
[2018-07-31] MEDS: HYDROCODONE/APAP (5/325) TAB PO (21:30)
[2018-08-01] MEDS: MEROPENEM 1 GM/50ML(PMX) 50 ML IVPB ×3 (00:57→17:50)
[2018-08-01] MEDS: NORepinephrine 8MG/250 ML (PMX 250 ML IV (03:28)
[2018-08-01 04:51] LABS: ADD MAN DIFF? NO
[2018-08-01 04:54] LABS: WHITE BLOOD COUNT 6.1 10^3/ul (4.8-10.8)
[2018-08-01 04:54] LABS: BASOPHILS % 0.7 % (0.0-2.0); EOSINOPHILS # 0.2 10^3/ul (0.0-0.5); EOSINOPHILS % 3.8 % (0.0-7.0); HEMATOCRIT 36.1 % (37.0-47.0); HEMOGLOBIN 11.5 g/dl (12.0-16.0); LYMPHOCYTES # 2.1 10^3/ul (0.8-2.9); LYMPHOCYTES % 35.1 % (15.0-51.0); MEAN CORPUSCULAR HEMOGLOBIN 28.5 pg (29.0-33.0); MEAN CORPUSCULAR HGB CONC 31.9 g/dl (32.0-37.0); MEAN CORPUSCULAR VOLUME 89.4 fl (82.0-101.0); MEAN PLATELET VOLUME 10.4 fl (7.4-10.4); MONOCYTE # 0.4 10^3/ul (0.3-0.9); MONOCYTES % 7.2 % (0.0-11.0); NEUTROPHIL # 3.2 10^3/ul (1.6-7.5); NEUTROPHILS % 52.9 % (39.0-77.0); PLATELET COUNT 250 10^3/UL (140-415); RED BLOOD COUNT 4.04 10^6/ul (4.20-5.40)
[2018-08-01 05:19] LABS: ANION GAP 5 (5-13); BLOOD UREA NITROGEN 10 mg/dl (7-20); CALCIUM 8.8 mg/dl (8.4-10.2); CARBON DIOXIDE 25 mmol/L (21-31); CHLORIDE 112 mmol/L (97-110); CREATININE 0.58 mg/dl (0.44-1.00); Estimated GFR > 60 mL/min (>60); GLUCOSE 88 mg/dl (70-220); POTASSIUM 3.8 mmol/L (3.5-5.1); SODIUM 142 mmol/L (135-144)
[2018-08-01 05:22] LABS: PHOSPHORUS 2.2 mg/dl (2.5-4.9)
[2018-08-01 05:22] LABS: MAGNESIUM 2.1 mg/dl (1.7-2.5)
[2018-08-01] MEDS: MIDODRINE HCL 10 MG TABLET PO ×3 (05:48→17:51)
[2018-08-01] MEDS: QUETIAPINE 25 MG TAB PO (09:00)
[2018-08-01] MEDS: DULOXETINE 30 MG CAP DR PO (09:00)
[2018-08-01] MEDS: BACLOFEN 10 MG TAB PO (09:00)
[2018-08-01] MEDS: SENNA TAB PO ×2 (09:00→20:50)
[2018-08-01] MEDS: clonAZEPAM 0.5 MG TAB PO (09:00)
[2018-08-01] MEDS: GABAPENTIN 300 MG CAP PO (09:00)
[2018-08-01] MEDS: LEVETIRACETAM 500 MG TAB PO (09:00)
[2018-08-01] MEDS: CALCIUM CARBONATE 1.25 GM TAB PO ×2 (09:00→20:50)
[2018-08-01] MEDS: MULTIVITAMINS/MINERALS TAB PO (09:00)
[2018-08-01] MEDS: IOHEXOL 100 ML (14:08)
[2018-08-01] MEDS: SOD CHLORIDE 0.9% 100 ML (14:09)
[2018-08-01] MEDS: FAMOTIDINE 20 MG INJ IV ×2 (15:31→21:05)
[2018-08-01] MEDS: morphine 2 MG INJ IV (17:49)
[2018-08-01] MEDS: RIVAROXABAN 20 MG TABLET PO (17:50)
[2018-08-01] MEDS ORDERED: LEVETIRACETAM 500 MG (PMX) 100 ML IVPB (21:00)
[2018-08-01] MEDS: LEVETIRACETAM IV 500 MG in DEXTROSE 5% 100 ML IV (21:05)
[2018-08-02] MEDS: MEROPENEM 1 GM/50ML(PMX) 50 ML IVPB ×3 (00:39→17:17)
[2018-08-02] MEDS: ACETAMINOPHEN 325 MG TAB PO (00:40)
[2018-08-02] MEDS: HYDROCODONE/APAP (5/325) TAB PO ×3 (02:42→17:06)
[2018-08-02 05:05] LABS: ADD MAN DIFF? NO
[2018-08-02 05:14] LABS: WHITE BLOOD COUNT 6.8 10^3/ul (4.8-10.8)
[2018-08-02 05:14] LABS: BASOPHILS % 0.6 % (0.0-2.0); EOSINOPHILS # 0.2 10^3/ul (0.0-0.5); EOSINOPHILS % 2.7 % (0.0-7.0); HEMATOCRIT 36.4 % (37.0-47.0); HEMOGLOBIN 11.8 g/dl (12.0-16.0); LYMPHOCYTES # 1.9 10^3/ul (0.8-2.9); LYMPHOCYTES % 27.7 % (15.0-51.0); MEAN CORPUSCULAR HEMOGLOBIN 28.8 pg (29.0-33.0); MEAN CORPUSCULAR HGB CONC 32.4 g/dl (32.0-37.0); MEAN CORPUSCULAR VOLUME 88.8 fl (82.0-101.0); MEAN PLATELET VOLUME 10.7 fl (7.4-10.4); MONOCYTE # 0.5 10^3/ul (0.3-0.9); MONOCYTES % 7.7 % (0.0-11.0); NEUTROPHIL # 4.1 10^3/ul (1.6-7.5); PLATELET COUNT 256 10^3/UL (140-415); RED CELL DISTRIBUTION WIDTH 14.2 % (11.5-14.5)
[2018-08-02 05:38] LABS: ANION GAP 6 (5-13); BLOOD UREA NITROGEN 9 mg/dl (7-20); CALCIUM 8.9 mg/dl (8.4-10.2); CARBON DIOXIDE 25 mmol/L (21-31); CHLORIDE 111 mmol/L (97-110); CREATININE 0.59 mg/dl (0.44-1.00); Estimated GFR > 60 mL/min (>60); GLUCOSE 97 mg/dl (70-220); MAGNESIUM 2.1 mg/dl (1.7-2.5); PHOSPHORUS 2.4 mg/dl (2.5-4.9); POTASSIUM 3.6 mmol/L (3.5-5.1); SODIUM 142 mmol/L (135-144)
[2018-08-02] MEDS: MIDODRINE HCL 10 MG TABLET PO ×2 (05:55→12:48)
[2018-08-02] MEDS: LEVETIRACETAM IV 500 MG in DEXTROSE 5% 100 ML IV (09:04)
[2018-08-02] MEDS: DULOXETINE 30 MG CAP DR PO (09:05)
[2018-08-02] MEDS: MULTIVITAMINS/MINERALS TAB PO (09:05)
[2018-08-02] MEDS: FAMOTIDINE 20 MG INJ IV (09:05)
[2018-08-02] MEDS: CALCIUM CARBONATE 1.25 GM TAB PO ×2 (09:05→22:03)
[2018-08-02] MEDS: SENNA TAB PO ×2 (09:05→22:03)
[2018-08-02] MEDS: SOD CHLORIDE 0.9% 1,000 ML IV ×2 (11:21→23:30)
[2018-08-02] MEDS: BACLOFEN 10 MG TAB PO ×2 (12:48→22:03)
[2018-08-02] MEDS: RIVAROXABAN 20 MG TABLET PO (17:06)
[2018-08-02] MEDS: MIDODRINE 5 MG TAB PO (17:06)
[2018-08-02] MEDS: LEVETIRACETAM 500 MG (PMX) 100 ML IVPB (21:30)
[2018-08-02] MEDS: GABAPENTIN 300 MG CAP PO (22:02)
[2018-08-02] MEDS: FAMOTIDINE 20 MG TAB PO (22:03)
[2018-08-03] MEDS: LEVETIRACETAM 500 MG (PMX) 100 ML IVPB ×3 (00:09→21:27)
[2018-08-03] MEDS: MEROPENEM 1 GM/50ML(PMX) 50 ML IVPB ×3 (00:37→16:19)
[2018-08-03] MEDS: MIDODRINE 5 MG TAB PO ×3 (05:52→16:50)
[2018-08-03] MEDS: GABAPENTIN 300 MG CAP PO ×3 (08:35→21:26)
[2018-08-03] MEDS: DULOXETINE 30 MG CAP DR PO (08:35)
[2018-08-03] MEDS: SENNA TAB PO ×2 (08:36→21:27)
[2018-08-03] MEDS: BACLOFEN 10 MG TAB PO ×3 (08:36→21:26)
[2018-08-03] MEDS: CALCIUM CARBONATE 1.25 GM TAB PO ×2 (08:36→21:27)
[2018-08-03] MEDS: MULTIVITAMINS/MINERALS TAB PO (08:36)
[2018-08-03] MEDS: FAMOTIDINE 20 MG TAB PO ×2 (08:36→21:27)
[2018-08-03] MEDS: TRIMETHOPRIM/SULFAMETHOX (DS) TAB PO ×2 (12:51→21:27)
[2018-08-03] MEDS: SOD CHLORIDE 0.9% 1,000 ML IV (12:54)
[2018-08-03] MEDS: RIVAROXABAN 20 MG TABLET PO (16:56)
[2018-08-04] MEDS: MEROPENEM 1 GM/50ML(PMX) 50 ML IVPB ×3 (01:25→17:39)
[2018-08-04] MEDS: MIDODRINE 5 MG TAB PO ×3 (05:30→17:39)
[2018-08-04 06:44] LABS: ADD MAN DIFF? NO
[2018-08-04 06:47] LABS: WHITE BLOOD COUNT 5.7 10^3/ul (4.8-10.8)
[2018-08-04 06:47] LABS: BASOPHILS % 0.7 % (0.0-2.0); EOSINOPHILS # 0.2 10^3/ul (0.0-0.5); EOSINOPHILS % 3.7 % (0.0-7.0); HEMATOCRIT 35.3 % (37.0-47.0); HEMOGLOBIN 11.4 g/dl (12.0-16.0); MEAN CORPUSCULAR HEMOGLOBIN 28.9 pg (29.0-33.0); MEAN CORPUSCULAR HGB CONC 32.3 g/dl (32.0-37.0); MEAN CORPUSCULAR VOLUME 89.6 fl (82.0-101.0); MEAN PLATELET VOLUME 10.5 fl (7.4-10.4); MONOCYTE # 0.4 10^3/ul (0.3-0.9); MONOCYTES % 7.5 % (0.0-11.0); NEUTROPHILS % 52.8 % (39.0-77.0); PLATELET COUNT 236 10^3/UL (140-415); RED BLOOD COUNT 3.94 10^6/ul (4.20-5.40); RED CELL DISTRIBUTION WIDTH 14.2 % (11.5-14.5)
[2018-08-04 07:33] LABS: ANION GAP 6 (5-13); BLOOD UREA NITROGEN 8 mg/dl (7-20); CALCIUM 8.8 mg/dl (8.4-10.2); CARBON DIOXIDE 23 mmol/L (21-31); CHLORIDE 114 mmol/L (97-110); CREATININE 0.55 mg/dl (0.44-1.00); Estimated GFR > 60 mL/min (>60); GLUCOSE 88 mg/dl (70-220); MAGNESIUM 2.2 mg/dl (1.7-2.5); PHOSPHORUS 1.6 mg/dl (2.5-4.9); POTASSIUM 3.6 mmol/L (3.5-5.1); SODIUM 143 mmol/L (135-144)
[2018-08-04] MEDS ORDERED: ENOXAPARIN 40 MG/0.4 ML SYG SC (09:00)
[2018-08-04] MEDS: BACLOFEN 10 MG TAB PO ×3 (09:13→20:37)
[2018-08-04] MEDS: GABAPENTIN 300 MG CAP PO ×3 (09:13→20:37)
[2018-08-04] MEDS: SENNA TAB PO ×2 (09:13→20:37)
[2018-08-04] MEDS: CALCIUM CARBONATE 1.25 GM TAB PO ×2 (09:13→20:38)
[2018-08-04] MEDS: FAMOTIDINE 20 MG TAB PO ×2 (09:13→20:37)
[2018-08-04] MEDS: TRIMETHOPRIM/SULFAMETHOX (DS) TAB PO ×2 (09:13→20:37)
[2018-08-04] MEDS: DULOXETINE 30 MG CAP DR PO (09:13)
[2018-08-04] MEDS: MULTIVITAMINS/MINERALS TAB PO (09:13)
[2018-08-04] MEDS: LEVETIRACETAM 500 MG (PMX) 100 ML IVPB ×2 (10:27→20:38)
[2018-08-04] MEDS: LIDOCAINE 1% (MPF) 5 ML VIAL SC (15:20)
[2018-08-04] MEDS: RIVAROXABAN 20 MG TABLET PO (17:39)
[2018-08-05] MEDS: MEROPENEM 1 GM/50ML(PMX) 50 ML IVPB ×3 (00:23→17:00)
[2018-08-05] MEDS: MIDODRINE 5 MG TAB PO ×3 (05:49→18:11)
[2018-08-05 06:12] LABS: ADD MAN DIFF? NO
[2018-08-05 06:23] LABS: WHITE BLOOD COUNT 6.8 10^3/ul (4.8-10.8)
[2018-08-05 06:23] LABS: BASOPHIL # 0.1 10^3/ul (0.0-0.1); EOSINOPHILS # 0.3 10^3/ul (0.0-0.5); EOSINOPHILS % 4.1 % (0.0-7.0); HEMATOCRIT 37.4 % (37.0-47.0); LYMPHOCYTES # 2.6 10^3/ul (0.8-2.9); LYMPHOCYTES % 38.8 % (15.0-51.0); MEAN CORPUSCULAR HEMOGLOBIN 28.7 pg (29.0-33.0); MEAN CORPUSCULAR HGB CONC 32.1 g/dl (32.0-37.0); MEAN CORPUSCULAR VOLUME 89.5 fl (82.0-101.0); MEAN PLATELET VOLUME 10.5 fl (7.4-10.4); MONOCYTE # 0.5 10^3/ul (0.3-0.9); MONOCYTES % 6.8 % (0.0-11.0); NEUTROPHIL # 3.3 10^3/ul (1.6-7.5); NEUTROPHILS % 48.9 % (39.0-77.0); PLATELET COUNT 273 10^3/UL (140-415); RED BLOOD COUNT 4.18 10^6/ul (4.20-5.40); RED CELL DISTRIBUTION WIDTH 14.6 % (11.5-14.5)
[2018-08-05 06:46] LABS: ANION GAP 7 (5-13); BLOOD UREA NITROGEN 9 mg/dl (7-20); CALCIUM 9.2 mg/dl (8.4-10.2); CARBON DIOXIDE 23 mmol/L (21-31); CHLORIDE 112 mmol/L (97-110); CREATININE 0.65 mg/dl (0.44-1.00); Estimated GFR > 60 mL/min (>60); GLUCOSE 85 mg/dl (70-220); SODIUM 142 mmol/L (135-144)
[2018-08-05 06:48] LABS: POTASSIUM 3.9 mmol/L (3.5-5.1)
[2018-08-05] MEDS: BACLOFEN 10 MG TAB PO ×2 (08:35→12:05)
[2018-08-05] MEDS: DULOXETINE 30 MG CAP DR PO (08:35)
[2018-08-05] MEDS: CALCIUM CARBONATE 1.25 GM TAB PO (08:35)
[2018-08-05] MEDS: TRIMETHOPRIM/SULFAMETHOX (DS) TAB PO (08:35)
[2018-08-05] MEDS: SENNA TAB PO (08:36)
[2018-08-05] MEDS: FAMOTIDINE 20 MG TAB PO (08:36)
[2018-08-05] MEDS: GABAPENTIN 300 MG CAP PO ×2 (08:36→12:05)
[2018-08-05] MEDS: MULTIVITAMINS/MINERALS TAB PO (08:36)
[2018-08-05] MEDS: LEVETIRACETAM 500 MG (PMX) 100 ML IVPB (09:10)
[2018-08-05] MEDS: LIDOCAINE 1% (MPF) 5 ML VIAL SC (16:10)
[2018-08-05] MEDS: RIVAROXABAN 20 MG TABLET PO (18:10)
== END 2018-08-05 19:50 | DRG 315 ==
LOC: TEL 08-02 20:50 → E/R 19:56 → ICU 23:23
PROVIDERS: Internal Medicine
PROC: 02HV33Z Insertion of Infusion Device into Superior Vena Cava, Percutaneous Approach (ICD-10-PCS; principal; 2018-08-05)
DX: I95.9 Hypotension, unspecified (principal); N39.0 Urinary tract infection, site not specified; I69.354 Hemiplegia and hemiparesis following cerebral infarction affecting left non-dominant side; I82.512 Chronic embolism and thrombosis of left femoral vein; G93.40 Encephalopathy, unspecified; E86.0 Dehydration; R55 Syncope and collapse; I10 Essential (primary) hypertension; G40.909 Epilepsy, unspecified, not intractable, without status epilepticus; Z79.02 Long term (current) use of antithrombotics/antiplatelets; Z74.01 Bed confinement status; I69.398 Other sequelae of cerebral infarction; G93.89 Other specified disorders of brain; M79.89 Other specified soft tissue disorders; I69.320 Aphasia following cerebral infarction
CPT/HCPCS: 36569; 70450; 70496; 70498; 70551; 71045; 76937; 80048; 80053; 81001; 81003; 82150; 83036; 83605; 83690; 83735; 84100; 84484; 85025; 85610; 85730; 87040-91; 87086; 92526; 92610; 93005; 93970; 94664; 96361; 96365; 97163; 99291-25

== ENCOUNTER 2018-09-04 17:37 | Inpatient (IN) | payer OTHER, MEDICAID, MEDICARE ==
[2018-09-04 18:45] LABS: ADD MAN DIFF? NO
[2018-09-04 18:48] LABS: BASOPHIL # 0.1 10^3/ul (0.0-0.1); BASOPHILS % 0.6 % (0.0-2.0); EOSINOPHILS # 0.3 10^3/ul (0.0-0.5); EOSINOPHILS % 3.7 % (0.0-7.0); HEMATOCRIT 36.7 % (37.0-47.0); HEMOGLOBIN 11.7 g/dl (12.0-16.0); LYMPHOCYTES # 2.4 10^3/ul (0.8-2.9); LYMPHOCYTES % 29.9 % (15.0-51.0); MEAN CORPUSCULAR HEMOGLOBIN 28.7 pg (29.0-33.0); MEAN CORPUSCULAR HGB CONC 31.9 g/dl (32.0-37.0); MEAN PLATELET VOLUME 10.3 fl (7.4-10.4); MONOCYTE # 0.6 10^3/ul (0.3-0.9); MONOCYTES % 6.9 % (0.0-11.0); NEUTROPHIL # 4.7 10^3/ul (1.6-7.5); NEUTROPHILS % 58.6 % (39.0-77.0); PLATELET COUNT 231 10^3/UL (140-415); RED BLOOD COUNT 4.08 10^6/ul (4.20-5.40); RED CELL DISTRIBUTION WIDTH 13.4 % (11.5-14.5)
[2018-09-04 18:48] LABS: WHITE BLOOD COUNT 7.9 10^3/ul (4.8-10.8)
[2018-09-04] MEDS: SOD CHLORIDE 0.9% 1,000 ML IV ×5 (18:48→23:50)
[2018-09-04 19:07] LABS: INR 0.94; PROTIME 12.7 Sec (11.9-14.9)
[2018-09-04 19:08] LABS: PARTIAL THROMBOPLASTIN TIME 43.6 Sec (23.0-35.0)
[2018-09-04 19:10] LABS: ALANINE AMINOTRANSFERASE 23 IU/L (13-69); ALBUMIN 3.8 g/dl (3.3-4.9); ALKALINE PHOSPHATASE 108 IU/L (42-121); ANION GAP 6 (5-13); ASPARTATE AMINO TRANSFERASE 18 IU/L (15-46); BILIRUBIN,INDIRECT 0.5 mg/dl (0-1.1); BILIRUBIN,TOTAL 0.5 mg/dl (0.2-1.3); BLOOD UREA NITROGEN 16 mg/dl (7-20); CALCIUM 9.1 mg/dl (8.4-10.2); CARBON DIOXIDE 29 mmol/L (21-31); CHLORIDE 106 mmol/L (97-110); CREATININE 0.78 mg/dl (0.44-1.00); Estimated GFR > 60 mL/min (>60); GLUCOSE 98 mg/dl (70-220); POTASSIUM 4.6 mmol/L (3.5-5.1); SODIUM 141 mmol/L (135-144); TOTAL PROTEIN 7.6 g/dl (6.1-8.1)
[2018-09-04] MEDS: CEFTRIAXONE 1 GM/50 ML (PMX) 50 ML IVPB (19:11)
[2018-09-04 19:21] LABS: TROPONIN-I < 0.012 ng/ml (0.000-0.120)
[2018-09-04 19:29] LABS: ADD UMIC YES; UR ASCORBIC ACID 40 mg/dL (NEGATIVE); UR BACTERIA FEW /HPF (NONE SEEN); UR BILIRUBIN (Dip) NEGATIVE (NEGATIVE); UR BLOOD (Dip) NEGATIVE (NEGATIVE); UR CALCIUM OXALATE CRYSTAL FEW /HPF (NONE SEEN); UR CLARITY CLOUDY (CLEAR); UR COLOR YELLOW (YELLOW); UR GLUCOSE (Dip) NEGATIVE (NEGATIVE); UR KETONES (Dip) NEGATIVE (NEGATIVE); UR LEUKOCYTE ESTERASE (Dip) 3+ Leu/ul (NEGATIVE); UR MUCUS FEW /HPF (NONE SEEN); UR NITRITE (Dip) POSITIVE (NEGATIVE); UR RBC 4 /HPF (0-5); UR SPECIFIC GRAVITY (Dip) 1.015 (1.003-1.030); UR TOTAL PROTEIN (Dip) NEGATIVE (NEGATIVE); UR UROBILINOGEN (Dip) NEGATIVE (NEGATIVE); UR WBC 161 /HPF (0-5)
[2018-09-04] MEDS ORDERED: ONDANSETRON 4 MG INJ IV (21:30)
[2018-09-04] MEDS ORDERED: NACL 0.9% 3 ML SYG IV (23:30)
[2018-09-04] MEDS ORDERED: ACETAMINOPHEN 325 MG TAB PO (23:30)
[2018-09-04] MEDS ORDERED: SIMETHICONE 180 MG PO (23:30)
[2018-09-05] MEDS: ACETAMINOPHEN 325 MG TAB PO (01:40)
[2018-09-05] MEDS: HYDROCODONE/APAP (5/325) TAB PO (02:22)
[2018-09-05 06:42] LABS: ADD MAN DIFF? NO
[2018-09-05 06:50] LABS: BASOPHIL # 0.1 10^3/ul (0.0-0.1); BASOPHILS % 0.9 % (0.0-2.0); EOSINOPHILS # 0.3 10^3/ul (0.0-0.5); EOSINOPHILS % 4.4 % (0.0-7.0); HEMATOCRIT 32.8 % (37.0-47.0); HEMOGLOBIN 10.4 g/dl (12.0-16.0); LYMPHOCYTES % 35.3 % (15.0-51.0); MEAN CORPUSCULAR HEMOGLOBIN 28.6 pg (29.0-33.0); MEAN CORPUSCULAR HGB CONC 31.7 g/dl (32.0-37.0); MEAN CORPUSCULAR VOLUME 90.1 fl (82.0-101.0); MEAN PLATELET VOLUME 10.5 fl (7.4-10.4); MONOCYTE # 0.4 10^3/ul (0.3-0.9); MONOCYTES % 6.5 % (0.0-11.0); NEUTROPHILS % 52.5 % (39.0-77.0); PLATELET COUNT 203 10^3/UL (140-415); RED BLOOD COUNT 3.64 10^6/ul (4.20-5.40); RED CELL DISTRIBUTION WIDTH 13.3 % (11.5-14.5)
[2018-09-05 06:50] LABS: WHITE BLOOD COUNT 5.7 10^3/ul (4.8-10.8)
[2018-09-05 07:10] LABS: ALANINE AMINOTRANSFERASE 18 IU/L (13-69); ALBUMIN/GLOBULIN RATIO 0.96; ALKALINE PHOSPHATASE 82 IU/L (42-121); ANION GAP 5 (5-13); ASPARTATE AMINO TRANSFERASE 17 IU/L (15-46); BILIRUBIN,INDIRECT 0.5 mg/dl (0-1.1); BILIRUBIN,TOTAL 0.5 mg/dl (0.2-1.3); BLOOD UREA NITROGEN 11 mg/dl (7-20); CALCIUM 8.2 mg/dl (8.4-10.2); CARBON DIOXIDE 25 mmol/L (21-31); CHLORIDE 112 mmol/L (97-110); CREATININE 0.55 mg/dl (0.44-1.00); Estimated GFR > 60 mL/min (>60); GLUCOSE 87 mg/dl (70-220); MAGNESIUM 1.9 mg/dl (1.7-2.5); PHOSPHORUS 3.2 mg/dl (2.5-4.9); POTASSIUM 3.8 mmol/L (3.5-5.1); SODIUM 142 mmol/L (135-144); TOTAL PROTEIN 6.1 g/dl (6.1-8.1)
[2018-09-05 07:24] LABS: HEMOGLOBIN A1C 5.1 % (0-5.9)
[2018-09-05] MEDS: SOD CHLORIDE 0.9% 1,000 ML IV ×2 (07:37→23:01)
[2018-09-05] MEDS: SENNA TAB PO ×2 (08:45→20:23)
[2018-09-05] MEDS: BACLOFEN 10 MG TAB PO ×3 (08:45→20:20)
[2018-09-05] MEDS: DULOXETINE 30 MG CAP DR PO (08:46)
[2018-09-05] MEDS: clonAZEPAM 0.5 MG TAB PO ×2 (08:46→20:27)
[2018-09-05] MEDS: CALCIUM CARBONATE 1.25 GM TAB PO ×2 (08:46→20:23)
[2018-09-05] MEDS: GABAPENTIN 300 MG CAP PO ×3 (08:46→20:23)
[2018-09-05] MEDS: QUETIAPINE 25 MG TAB PO ×2 (08:46→20:21)
[2018-09-05] MEDS: LEVETIRACETAM 500 MG TAB PO ×2 (08:46→20:20)
[2018-09-05] MEDS ORDERED: ENOXAPARIN 40 MG/0.4 ML SYG SC (09:00)
[2018-09-05] MEDS ORDERED: TROSPIUM CHLORIDE 20 MG PO (09:00)
[2018-09-05] MEDS: [UNRECOGNIZED DRUG - REMARK] XX (17:00)
[2018-09-05] MEDS: RIVAROXABAN 20 MG TABLET PO (17:38)
[2018-09-05] MEDS: CEFTRIAXONE 1 GM/50 ML (PMX) 50 ML IVPB (17:38)
[2018-09-05] MEDS: PRIMIDONE 50 MG TAB PO (20:24)
[2018-09-06] MEDS: [UNRECOGNIZED DRUG - REMARK] XX ×3 (01:00→16:52)
[2018-09-06 07:53] LABS: ADD MAN DIFF? NO
[2018-09-06 07:58] LABS: BASOPHILS % 0.5 % (0.0-2.0); EOSINOPHILS # 0.2 10^3/ul (0.0-0.5); EOSINOPHILS % 3.5 % (0.0-7.0); HEMATOCRIT 33.3 % (37.0-47.0); HEMOGLOBIN 10.7 g/dl (12.0-16.0); LYMPHOCYTES # 1.5 10^3/ul (0.8-2.9); LYMPHOCYTES % 26.7 % (15.0-51.0); MEAN CORPUSCULAR HEMOGLOBIN 28.9 pg (29.0-33.0); MEAN CORPUSCULAR HGB CONC 32.1 g/dl (32.0-37.0); MEAN PLATELET VOLUME 10.7 fl (7.4-10.4); MONOCYTE # 0.4 10^3/ul (0.3-0.9); MONOCYTES % 6.4 % (0.0-11.0); NEUTROPHIL # 3.4 10^3/ul (1.6-7.5); NEUTROPHILS % 62.5 % (39.0-77.0); PLATELET COUNT 220 10^3/UL (140-415); RED CELL DISTRIBUTION WIDTH 13.2 % (11.5-14.5)
[2018-09-06 07:58] LABS: WHITE BLOOD COUNT 5.5 10^3/ul (4.8-10.8)
[2018-09-06 08:16] LABS: ANION GAP 7 (5-13); BLOOD UREA NITROGEN 9 mg/dl (7-20); CALCIUM 8.6 mg/dl (8.4-10.2); CARBON DIOXIDE 23 mmol/L (21-31); CHLORIDE 114 mmol/L (97-110); CREATININE 0.57 mg/dl (0.44-1.00); Estimated GFR > 60 mL/min (>60); GLUCOSE 88 mg/dl (70-220); MAGNESIUM 1.8 mg/dl (1.7-2.5); PHOSPHORUS 3.7 mg/dl (2.5-4.9); POTASSIUM 3.4 mmol/L (3.5-5.1); SODIUM 144 mmol/L (135-144)
[2018-09-06] MEDS: LEVETIRACETAM 500 MG TAB PO (08:48)
[2018-09-06] MEDS: clonAZEPAM 0.5 MG TAB PO (08:48)
[2018-09-06] MEDS: BACLOFEN 10 MG TAB PO ×2 (08:48→12:57)
[2018-09-06] MEDS: SENNA TAB PO (08:48)
[2018-09-06] MEDS: DULOXETINE 30 MG CAP DR PO (08:48)
[2018-09-06] MEDS: CALCIUM CARBONATE 1.25 GM TAB PO (08:48)
[2018-09-06] MEDS: GABAPENTIN 300 MG CAP PO ×2 (08:48→12:57)
[2018-09-06] MEDS: QUETIAPINE 25 MG TAB PO (08:48)
[2018-09-06 10:00] LABS: FREE THYROXINE INDEX (Calc) 1.81 ug/ml (0.65-3.89); T3 UPTAKE 34.1 % (23.5-40.5); T4 (THYROXINE) 5.3 ug/dl (5.5-11.0)
[2018-09-06] MEDS: MEROPENEM 1 GM/50ML(PMX) 50 ML IVPB (10:01)
[2018-09-06] MEDS: LEVOTHYROXINE 75 MCG TAB PO (10:01)
[2018-09-06] MEDS: SOD CHLORIDE 0.9% 1,000 ML IV (15:06)
[2018-09-06] MEDS: RIVAROXABAN 20 MG TABLET PO (17:40)
[2018-09-06] MEDS ORDERED: TROSPIUM CHLORIDE 20 MG PO (19:00)
== END 2018-09-06 18:50 | disposition home or self-care (01) | DRG 871 ==
LOC: E/R 17:37 → TEL 21:15
DX: A41.9 Sepsis, unspecified organism (principal); J18.9 Pneumonia, unspecified organism; N39.0 Urinary tract infection, site not specified; Z87.440 Personal history of urinary (tract) infections; G40.909 Epilepsy, unspecified, not intractable, without status epilepticus; Z86.718 Personal history of other venous thrombosis and embolism; E03.9 Hypothyroidism, unspecified; I69.998 Other sequelae following unspecified cerebrovascular disease; R56.9 Unspecified convulsions; B96.20 Unspecified Escherichia coli [E. coli] as the cause of diseases classified elsewhere; Z79.02 Long term (current) use of antithrombotics/antiplatelets; R13.19 Other dysphagia
CPT/HCPCS: 71045; 80048; 80053; 81001; 83036; 83735; 84100; 84436; 84443; 84479; 84484; 85025; 85610; 85730; 87081; 87086; 92610; 93005

== ENCOUNTER 2018-11-14 16:45 | Inpatient (IN) | payer OTHER, MEDICAID, MEDICARE ==
[2018-11-14] MEDS: ALBUTEROL 0.5% (NEB) 2.5 MG/0.5 ML AMP INH (17:34)
[2018-11-14 17:41] LABS: AADO2 Arterial 40.7 mmHg (7.0-24.0); Arterial Base Excess 2.4 mmol/L (-3.0-3); Arterial Blood Gas Oxygen Sat 92.2 mmHG (95.0-98.0); Arterial COHb 0.5 % (0.0-3.0); Arterial Fraction of Oxyhgb 91.6 % (93.0-99.0); Arterial HCO3 26.8 mmol/L (22.0-26.0); Arterial MetHb 0.2 % (0.0-1.5); Arterial pCO2 40.6 mmhg (35-45); MODE ROOM AIR; Site Right Brachial
[2018-11-14 17:58] LABS: ADD MAN DIFF? NO
[2018-11-14 18:03] LABS: BASOPHILS % 0.3 % (0.0-2.0); EOSINOPHILS # 0.1 10^3/ul (0.0-0.5); EOSINOPHILS % 2.3 % (0.0-7.0); HEMATOCRIT 23.5 % (37.0-47.0); HEMOGLOBIN 7.1 g/dl (12.0-16.0); LYMPHOCYTES # 1.6 10^3/ul (0.8-2.9); LYMPHOCYTES % 28.3 % (15.0-51.0); MEAN CORPUSCULAR HEMOGLOBIN 29.3 pg (29.0-33.0); MEAN CORPUSCULAR HGB CONC 30.2 g/dl (32.0-37.0); MEAN CORPUSCULAR VOLUME 97.1 fl (82.0-101.0); MEAN PLATELET VOLUME 10.5 fl (7.4-10.4); MONOCYTE # 0.4 10^3/ul (0.3-0.9); MONOCYTES % 6.4 % (0.0-11.0); NEUTROPHIL # 3.6 10^3/ul (1.6-7.5); NEUTROPHILS % 62.4 % (39.0-77.0); PLATELET COUNT 167 10^3/UL (140-415); RED BLOOD COUNT 2.42 10^6/ul (4.20-5.40); RED CELL DISTRIBUTION WIDTH 13.2 % (11.5-14.5)
[2018-11-14 18:03] LABS: WHITE BLOOD COUNT 5.8 10^3/ul (4.8-10.8)
[2018-11-14] MEDS: METHYLPREDNISOLONE 125 MG INJ IV (18:23)
[2018-11-14] MEDS: SOD CHLORIDE 0.9% 1,000 ML IV (18:23)
[2018-11-14 18:29] LABS: ALANINE AMINOTRANSFERASE 24 IU/L (13-69); ALBUMIN 2.1 g/dl (3.3-4.9); ALKALINE PHOSPHATASE 46 IU/L (42-121); ANION GAP 4 (5-13); ASPARTATE AMINO TRANSFERASE 25 IU/L (15-46); BILIRUBIN,INDIRECT 0.3 mg/dl (0-1.1); BILIRUBIN,TOTAL 0.3 mg/dl (0.2-1.3); BLOOD UREA NITROGEN 10 mg/dl (7-20); CALCIUM 6.1 mg/dl (8.4-10.2); CARBON DIOXIDE 17 mmol/L (21-31); CHLORIDE 123 mmol/L (97-110); CREATININE 0.34 mg/dl (0.44-1.00); Estimated GFR > 60 mL/min (>60); GLUCOSE 61 mg/dl (70-220); LIPASE 20 U/L (23-300); SODIUM 144 mmol/L (135-144); TOTAL PROTEIN 4.7 g/dl (6.1-8.1)
[2018-11-14 18:32] LABS: POTASSIUM 2.8 mmol/L (3.5-5.1)
[2018-11-14 18:35] LABS: ADD UMIC YES; UR ASCORBIC ACID 40 mg/dL (NEGATIVE); UR BACTERIA MANY /HPF (NONE SEEN); UR BILIRUBIN (Dip) NEGATIVE (NEGATIVE); UR BLOOD (Dip) 1+ mg/dL (NEGATIVE); UR CLARITY TURBID (CLEAR); UR COLOR AMBER (YELLOW); UR GLUCOSE (Dip) NEGATIVE (NEGATIVE); UR KETONES (Dip) NEGATIVE (NEGATIVE); UR LEUKOCYTE ESTERASE (Dip) 3+ Leu/ul (NEGATIVE); UR MUCUS MANY /HPF (NONE SEEN); UR NITRITE (Dip) NEGATIVE (NEGATIVE); UR RBC 54 /HPF (0-5); UR SPECIFIC GRAVITY (Dip) 1.019 (1.003-1.030); UR TOTAL PROTEIN (Dip) 2+ mg/dl (NEGATIVE); UR UROBILINOGEN (Dip) NEGATIVE (NEGATIVE); UR WBC > 182 /HPF (0-5)
[2018-11-14 18:39] LABS: TROPONIN-I < 0.012 ng/ml (0.000-0.120)
[2018-11-14] MEDS: CEFEPIME 1GM/50 ML (PMX) 50 ML IVPB (19:46)
[2018-11-15] MEDS ORDERED: SIMETHICONE 180 MG PO
[2018-11-15] MEDS ORDERED: ONDANSETRON 4 MG INJ IV
[2018-11-15] MEDS ORDERED: NACL 0.9% 3 ML SYG IV
[2018-11-15 00:31] LABS: IMMEDIATE SPIN CROSSMATCH 1 2
[2018-11-15] MEDS: ACETAMINOPHEN 325 MG TAB PO (01:36)
[2018-11-15] MEDS: LEVETIRACETAM 500 MG TAB PO ×3 (02:03→20:06)
[2018-11-15] MEDS: POTASSIUM CHLORIDE 100 ML IVPB ×4 (02:21→06:29)
[2018-11-15] MEDS: PANTOPRAZOLE 40 MG INJ IV ×2 (06:20→17:52)
[2018-11-15] MEDS: LEVOTHYROXINE 75 MCG TAB PO (06:24)
[2018-11-15] MEDS ORDERED: VANCOMYCIN IV PER PHARMACY XX (07:00)
[2018-11-15 07:23] LABS: ADD MAN DIFF? NO
[2018-11-15] MEDS ORDERED: PENDING SANTYL ORDER FOR WOUND CARE XX (07:30)
[2018-11-15 07:32] LABS: WHITE BLOOD COUNT 6.8 10^3/ul (4.8-10.8)
[2018-11-15 07:32] LABS: BASOPHILS % 0.1 % (0.0-2.0); EOSINOPHILS % 0.1 % (0.0-7.0); HEMATOCRIT 48.9 % (37.0-47.0); HEMOGLOBIN 15.1 g/dl (12.0-16.0); LYMPHOCYTES # 0.9 10^3/ul (0.8-2.9); LYMPHOCYTES % 13.5 % (15.0-51.0); MEAN CORPUSCULAR HGB CONC 30.9 g/dl (32.0-37.0); MEAN CORPUSCULAR VOLUME 93.9 fl (82.0-101.0); MEAN PLATELET VOLUME 11.8 fl (7.4-10.4); MONOCYTE # 0.2 10^3/ul (0.3-0.9); MONOCYTES % 2.9 % (0.0-11.0); NEUTROPHIL # 5.7 10^3/ul (1.6-7.5); PLATELET COUNT 168 10^3/UL (140-415); RED BLOOD COUNT 5.21 10^6/ul (4.20-5.40); RED CELL DISTRIBUTION WIDTH 14.6 % (11.5-14.5)
[2018-11-15 07:55] LABS: ALANINE AMINOTRANSFERASE 12 IU/L (13-69); ALBUMIN 3.4 g/dl (3.3-4.9); ALBUMIN/GLOBULIN RATIO 0.97; ALKALINE PHOSPHATASE 87 IU/L (42-121); ANION GAP 10 (5-13); ASPARTATE AMINO TRANSFERASE 23 IU/L (15-46); BILIRUBIN,INDIRECT 0.8 mg/dl (0-1.1); BILIRUBIN,TOTAL 0.8 mg/dl (0.2-1.3); BLOOD UREA NITROGEN 12 mg/dl (7-20); CALCIUM 8.7 mg/dl (8.4-10.2); CARBON DIOXIDE 21 mmol/L (21-31); CHLORIDE 110 mmol/L (97-110); CREATININE 0.54 mg/dl (0.44-1.00); Estimated GFR > 60 mL/min (>60); GLUCOSE 117 mg/dl (70-220); MAGNESIUM 1.8 mg/dl (1.7-2.5); POTASSIUM 4.5 mmol/L (3.5-5.1); SODIUM 141 mmol/L (135-144); TOTAL PROTEIN 6.9 g/dl (6.1-8.1)
[2018-11-15] MEDS: METHYLPREDNISOLONE 125 MG INJ IV (09:00)
[2018-11-15] MEDS ORDERED: CEFEPIME 1GM/50 ML (PMX) 50 ML IVPB (09:00)
[2018-11-15 09:10] LABS: IRON 126 ug/dl (35-150)
[2018-11-15 09:20] LABS: % IRON SATURATION 59 % SAT (22-52); TOTAL IRON BINDING CAPACITY 213 ug/dl (241-421)
[2018-11-15] MEDS: MEROPENEM 1 GM/50ML(PMX) 50 ML IVPB ×2 (09:58→20:07)
[2018-11-15] MEDS: GABAPENTIN 300 MG CAP PO ×3 (10:05→20:06)
[2018-11-15] MEDS: QUETIAPINE 25 MG TAB PO ×2 (10:05→20:05)
[2018-11-15] MEDS: CALCIUM CARBONATE 1.25 GM TAB PO ×2 (10:05→20:05)
[2018-11-15] MEDS: BACLOFEN 10 MG TAB PO ×3 (10:06→20:06)
[2018-11-15] MEDS: DULOXETINE 30 MG CAP DR PO (10:06)
[2018-11-15] MEDS: SENNA TAB PO ×2 (10:06→20:07)
[2018-11-15] MEDS: clonAZEPAM 0.5 MG TAB PO ×2 (10:11→20:05)
[2018-11-15 19:38] LABS: OCCULT BLOOD STOOL NEGATIVE (NEGATIVE)
[2018-11-15] MEDS: PRIMIDONE 50 MG TAB PO (20:15)
[2018-11-16] MEDS: HALOPERIDOL 5 MG INJ IM (02:14)
[2018-11-16] MEDS: LEVOTHYROXINE 75 MCG TAB PO (05:59)
[2018-11-16] MEDS: PANTOPRAZOLE 40 MG INJ IV ×2 (05:59→18:06)
[2018-11-16 07:06] LABS: ADD MAN DIFF? NO
[2018-11-16 07:10] LABS: BASOPHIL # 0.1 10^3/ul (0.0-0.1); BASOPHILS % 0.6 % (0.0-2.0); EOSINOPHILS # 0.1 10^3/ul (0.0-0.5); EOSINOPHILS % 0.6 % (0.0-7.0); HEMATOCRIT 48.7 % (37.0-47.0); HEMOGLOBIN 15.5 g/dl (12.0-16.0); LYMPHOCYTES # 2.7 10^3/ul (0.8-2.9); LYMPHOCYTES % 33.5 % (15.0-51.0); MEAN CORPUSCULAR HEMOGLOBIN 29.4 pg (29.0-33.0); MEAN CORPUSCULAR HGB CONC 31.8 g/dl (32.0-37.0); MEAN CORPUSCULAR VOLUME 92.4 fl (82.0-101.0); MEAN PLATELET VOLUME 11.2 fl (7.4-10.4); MONOCYTE # 0.5 10^3/ul (0.3-0.9); MONOCYTES % 5.6 % (0.0-11.0); NEUTROPHIL # 4.8 10^3/ul (1.6-7.5); NEUTROPHILS % 59.3 % (39.0-77.0); PLATELET COUNT 192 10^3/UL (140-415); RED BLOOD COUNT 5.27 10^6/ul (4.20-5.40); RED CELL DISTRIBUTION WIDTH 14.4 % (11.5-14.5)
[2018-11-16 07:10] LABS: WHITE BLOOD COUNT 8.1 10^3/ul (4.8-10.8)
[2018-11-16 07:37] LABS: ANION GAP 7 (5-13); BLOOD UREA NITROGEN 10 mg/dl (7-20); CALCIUM 9.2 mg/dl (8.4-10.2); CARBON DIOXIDE 25 mmol/L (21-31); CHLORIDE 111 mmol/L (97-110); CREATININE 0.64 mg/dl (0.44-1.00); Estimated GFR > 60 mL/min (>60); GLUCOSE 83 mg/dl (70-220); POTASSIUM 4.6 mmol/L (3.5-5.1); SODIUM 143 mmol/L (135-144)
[2018-11-16] MEDS: METHYLPREDNISOLONE 125 MG INJ IV (08:34)
[2018-11-16] MEDS: MEROPENEM 1 GM/50ML(PMX) 50 ML IVPB ×2 (08:36→20:52)
[2018-11-16] MEDS: SENNA TAB PO ×2 (09:00→21:00)
[2018-11-16] MEDS: GABAPENTIN 300 MG CAP PO ×3 (10:12→20:49)
[2018-11-16] MEDS: BACLOFEN 10 MG TAB PO ×3 (10:12→20:50)
[2018-11-16] MEDS: DULOXETINE 30 MG CAP DR PO (10:12)
[2018-11-16] MEDS: LEVETIRACETAM 500 MG TAB PO ×2 (10:13→20:50)
[2018-11-16] MEDS: clonAZEPAM 0.5 MG TAB PO ×2 (10:13→21:32)
[2018-11-16] MEDS: CALCIUM CARBONATE 1.25 GM TAB PO ×2 (10:13→20:49)
[2018-11-16] MEDS: QUETIAPINE 25 MG TAB PO ×2 (10:14→20:50)
[2018-11-16] MEDS ORDERED: VANCOMYCIN IV PER PHARMACY XX (11:30)
[2018-11-16] MEDS: VANCOMYCIN 1.25 GM/NS 250 ML 250 ML IVPB (14:14)
[2018-11-16] MEDS: PRIMIDONE 50 MG TAB PO (20:50)
[2018-11-17] MEDS: VANCOMYCIN 500 MG (PMX) 100 ML IVPB ×2 (02:20→14:06)
[2018-11-17] MEDS: PANTOPRAZOLE 40 MG INJ IV ×2 (06:18→18:27)
[2018-11-17] MEDS: LEVOTHYROXINE 75 MCG TAB PO (06:18)
[2018-11-17] MEDS: clonAZEPAM 0.5 MG TAB PO ×2 (09:00→20:39)
[2018-11-17] MEDS: SENNA TAB PO ×2 (09:00→20:39)
[2018-11-17] MEDS: QUETIAPINE 25 MG TAB PO ×2 (09:00→20:40)
[2018-11-17] MEDS: GABAPENTIN 300 MG CAP PO ×3 (09:00→20:39)
[2018-11-17] MEDS: DULOXETINE 30 MG CAP DR PO (09:00)
[2018-11-17] MEDS: LEVETIRACETAM 500 MG TAB PO ×2 (09:00→20:38)
[2018-11-17] MEDS: CALCIUM CARBONATE 1.25 GM TAB PO ×2 (09:00→20:39)
[2018-11-17] MEDS: BACLOFEN 10 MG TAB PO ×3 (09:00→20:39)
[2018-11-17] MEDS: METHYLPREDNISOLONE 125 MG INJ IV (09:37)
[2018-11-17] MEDS: MEROPENEM 1 GM/50ML(PMX) 50 ML IVPB ×2 (09:38→20:15)
[2018-11-17] MEDS: ALBUTEROL/IPRATROPIUM (NEB) 3 ML AMP HHN (15:11)
[2018-11-17] MEDS: RIVAROXABAN 20 MG TABLET PO (17:15)
[2018-11-17] MEDS: PRIMIDONE 50 MG TAB PO (20:39)
[2018-11-18] MEDS: morphine 2 MG INJ IV (00:01)
[2018-11-18] MEDS: VANCOMYCIN 500 MG (PMX) 100 ML IVPB ×2 (03:25→15:00)
[2018-11-18] MEDS: LEVOTHYROXINE 75 MCG TAB PO (05:40)
[2018-11-18] MEDS: PANTOPRAZOLE 40 MG INJ IV ×2 (05:49→18:00)
[2018-11-18 08:10] LABS: ADD MAN DIFF? NO
[2018-11-18 08:15] LABS: BASOPHILS % 0.4 % (0.0-2.0); EOSINOPHILS % 0.2 % (0.0-7.0); HEMATOCRIT 47.6 % (37.0-47.0); HEMOGLOBIN 15.2 g/dl (12.0-16.0); LYMPHOCYTES # 1.3 10^3/ul (0.8-2.9); LYMPHOCYTES % 13.1 % (15.0-51.0); MEAN CORPUSCULAR HEMOGLOBIN 29.1 pg (29.0-33.0); MEAN CORPUSCULAR HGB CONC 31.9 g/dl (32.0-37.0); MEAN PLATELET VOLUME 10.7 fl (7.4-10.4); MONOCYTE # 0.7 10^3/ul (0.3-0.9); MONOCYTES % 7.1 % (0.0-11.0); NEUTROPHIL # 7.7 10^3/ul (1.6-7.5); NEUTROPHILS % 78.9 % (39.0-77.0); PLATELET COUNT 269 10^3/UL (140-415); RED BLOOD COUNT 5.23 10^6/ul (4.20-5.40); RED CELL DISTRIBUTION WIDTH 13.9 % (11.5-14.5)
[2018-11-18 08:15] LABS: WHITE BLOOD COUNT 9.7 10^3/ul (4.8-10.8)
[2018-11-18] MEDS: MEROPENEM 1 GM/50ML(PMX) 50 ML IVPB ×2 (08:45→21:24)
[2018-11-18] MEDS: DULOXETINE 30 MG CAP DR PO (08:45)
[2018-11-18] MEDS: BACLOFEN 10 MG TAB PO ×3 (08:45→21:00)
[2018-11-18] MEDS: LEVETIRACETAM 500 MG TAB PO ×2 (08:45→21:00)
[2018-11-18] MEDS: clonAZEPAM 0.5 MG TAB PO ×2 (08:45→21:00)
[2018-11-18] MEDS: METHYLPREDNISOLONE 125 MG INJ IV (08:45)
[2018-11-18] MEDS: SENNA TAB PO ×2 (08:46→21:00)
[2018-11-18] MEDS: QUETIAPINE 25 MG TAB PO ×2 (08:46→21:00)
[2018-11-18] MEDS: GABAPENTIN 300 MG CAP PO ×3 (08:46→21:00)
[2018-11-18] MEDS: CALCIUM CARBONATE 1.25 GM TAB PO ×2 (08:46→21:00)
[2018-11-18 08:54] LABS: ANION GAP 9 (5-13); BLOOD UREA NITROGEN 12 mg/dl (7-20); CALCIUM 9.3 mg/dl (8.4-10.2); CARBON DIOXIDE 27 mmol/L (21-31); CHLORIDE 106 mmol/L (97-110); CREATININE 0.53 mg/dl (0.44-1.00); Estimated GFR > 60 mL/min (>60); GLUCOSE 101 mg/dl (70-220); POTASSIUM 3.6 mmol/L (3.5-5.1); SODIUM 142 mmol/L (135-144)
[2018-11-18 14:45] LABS: VANCOMYCIN,TROUGH 14.2 ug/ml (10.0-20.0)
[2018-11-18] MEDS: RIVAROXABAN 20 MG TABLET PO (17:55)
[2018-11-18] MEDS: PRIMIDONE 50 MG TAB PO (21:00)
[2018-11-19] MEDS: VANCOMYCIN 500 MG (PMX) 100 ML IVPB ×2 (02:29→14:31)
[2018-11-19] MEDS: LEVOTHYROXINE 75 MCG TAB PO (06:00)
[2018-11-19] MEDS: PANTOPRAZOLE 40 MG INJ IV ×2 (06:18→17:17)
[2018-11-19 07:33] LABS: ADD MAN DIFF? NO
[2018-11-19 07:41] LABS: BASOPHILS % 0.3 % (0.0-2.0); EOSINOPHILS % 0.1 % (0.0-7.0); HEMATOCRIT 47.8 % (37.0-47.0); HEMOGLOBIN 15.3 g/dl (12.0-16.0); LYMPHOCYTES # 1.1 10^3/ul (0.8-2.9); MEAN CORPUSCULAR HEMOGLOBIN 28.9 pg (29.0-33.0); MEAN CORPUSCULAR VOLUME 90.4 fl (82.0-101.0); MEAN PLATELET VOLUME 10.7 fl (7.4-10.4); MONOCYTE # 0.7 10^3/ul (0.3-0.9); MONOCYTES % 6.2 % (0.0-11.0); NEUTROPHIL # 9.9 10^3/ul (1.6-7.5); NEUTROPHILS % 84.1 % (39.0-77.0); PLATELET COUNT 269 10^3/UL (140-415); RED BLOOD COUNT 5.29 10^6/ul (4.20-5.40); RED CELL DISTRIBUTION WIDTH 14.3 % (11.5-14.5)
[2018-11-19 07:41] LABS: WHITE BLOOD COUNT 11.8 10^3/ul (4.8-10.8)
[2018-11-19 08:16] LABS: ANION GAP 15 (5-13); BLOOD UREA NITROGEN 15 mg/dl (7-20); CALCIUM 9.7 mg/dl (8.4-10.2); CARBON DIOXIDE 21 mmol/L (21-31); CHLORIDE 107 mmol/L (97-110); CREATININE 0.53 mg/dl (0.44-1.00); Estimated GFR > 60 mL/min (>60); GLUCOSE 94 mg/dl (70-220); POTASSIUM 3.5 mmol/L (3.5-5.1); SODIUM 143 mmol/L (135-144)
[2018-11-19] MEDS: DULOXETINE 30 MG CAP DR PO (08:24)
[2018-11-19] MEDS: SENNA TAB PO ×2 (08:24→21:00)
[2018-11-19] MEDS: CALCIUM CARBONATE 1.25 GM TAB PO ×2 (08:24→21:00)
[2018-11-19] MEDS: QUETIAPINE 25 MG TAB PO ×2 (08:24→21:00)
[2018-11-19] MEDS: BACLOFEN 10 MG TAB PO ×3 (08:24→21:00)
[2018-11-19] MEDS: GABAPENTIN 300 MG CAP PO ×3 (08:24→21:00)
[2018-11-19] MEDS: clonAZEPAM 0.5 MG TAB PO ×2 (08:24→21:00)
[2018-11-19] MEDS: MEROPENEM 1 GM/50ML(PMX) 50 ML IVPB ×2 (08:25→21:29)
[2018-11-19] MEDS: METHYLPREDNISOLONE 125 MG INJ IV (08:25)
[2018-11-19] MEDS: SOD CHLORIDE 0.9% 1,000 ML IV ×2 (08:56→20:38)
[2018-11-19] MEDS: LEVETIRACETAM 500 MG (PMX) 100 ML IVPB ×2 (09:57→20:34)
[2018-11-19] MEDS: ENOXAPARIN 40 MG/0.4 ML SYG SC (12:46)
[2018-11-19] MEDS ORDERED: metroNIDAZOLE 500 MG/NS (PMX) 100 ML IVPB (14:00)
[2018-11-19] MEDS ORDERED: ALBUTEROL/IPRATROPIUM (NEB) 3 ML AMP HHN (17:00)
[2018-11-19] MEDS: ALBUTEROL/IPRATROPIUM (NEB) 3 ML AMP HHN (20:05)
[2018-11-19] MEDS: PRIMIDONE 50 MG TAB PO (21:00)
[2018-11-20] MEDS: VANCOMYCIN 500 MG (PMX) 100 ML IVPB ×2 (01:14→17:14)
[2018-11-20] MEDS: ALBUTEROL/IPRATROPIUM (NEB) 3 ML AMP HHN ×4 (02:06→19:44)
[2018-11-20] MEDS: SOD CHLORIDE 0.9% 1,000 ML IV (04:57)
[2018-11-20] MEDS: PANTOPRAZOLE 40 MG INJ IV ×2 (05:04→17:14)
[2018-11-20] MEDS: LEVOTHYROXINE 75 MCG TAB PO (05:04)
[2018-11-20 05:20] LABS: AADO2 Arterial 141.5 mmHg (7.0-24.0); Allen Test ACCEPTAB; Arterial Base Excess -5.5 mmol/L (-3.0-3); Arterial Blood Gas Oxygen Sat 97.7 mmHG (95.0-98.0); Arterial COHb 0.3 % (0.0-3.0); Arterial HCO3 17.8 mmol/L (22.0-26.0); Arterial MetHb 0.4 % (0.0-1.5); Arterial pCO2 30.4 mmhg (35-45); MODE NASAL CANNULA; Site Right Radial
[2018-11-20 06:48] LABS: ADD MAN DIFF? NO
[2018-11-20 06:54] LABS: WHITE BLOOD COUNT 8.4 10^3/ul (4.8-10.8)
[2018-11-20 06:54] LABS: BASOPHILS % 0.5 % (0.0-2.0); EOSINOPHILS % 0.2 % (0.0-7.0); HEMATOCRIT 45.9 % (37.0-47.0); HEMOGLOBIN 14.3 g/dl (12.0-16.0); LYMPHOCYTES # 0.9 10^3/ul (0.8-2.9); MEAN CORPUSCULAR HEMOGLOBIN 28.9 pg (29.0-33.0); MEAN CORPUSCULAR HGB CONC 31.2 g/dl (32.0-37.0); MEAN CORPUSCULAR VOLUME 92.9 fl (82.0-101.0); MEAN PLATELET VOLUME 10.4 fl (7.4-10.4); MONOCYTE # 0.6 10^3/ul (0.3-0.9); MONOCYTES % 6.8 % (0.0-11.0); NEUTROPHIL # 6.8 10^3/ul (1.6-7.5); NEUTROPHILS % 80.9 % (39.0-77.0); PLATELET COUNT 263 10^3/UL (140-415); RED BLOOD COUNT 4.94 10^6/ul (4.20-5.40); RED CELL DISTRIBUTION WIDTH 14.4 % (11.5-14.5)
[2018-11-20] MEDS: BACLOFEN 10 MG TAB PO ×3 (07:02→21:00)
[2018-11-20] MEDS: clonAZEPAM 0.5 MG TAB PO ×2 (07:02→21:00)
[2018-11-20] MEDS: DULOXETINE 30 MG CAP DR PO (07:02)
[2018-11-20] MEDS: SENNA TAB PO ×2 (07:03→21:00)
[2018-11-20] MEDS: CALCIUM CARBONATE 1.25 GM TAB PO ×2 (07:03→21:00)
[2018-11-20] MEDS: QUETIAPINE 25 MG TAB PO ×2 (07:03→21:00)
[2018-11-20] MEDS: GABAPENTIN 300 MG CAP PO ×3 (07:03→21:00)
[2018-11-20 07:40] LABS: ANION GAP 12 (5-13); BLOOD UREA NITROGEN 17 mg/dl (7-20); CALCIUM 9.2 mg/dl (8.4-10.2); CARBON DIOXIDE 20 mmol/L (21-31); CHLORIDE 114 mmol/L (97-110); CREATININE 0.53 mg/dl (0.44-1.00); Estimated GFR > 60 mL/min (>60); GLUCOSE 102 mg/dl (70-220); POTASSIUM 3.2 mmol/L (3.5-5.1); SODIUM 146 mmol/L (135-144)
[2018-11-20] MEDS: METHYLPREDNISOLONE 125 MG INJ IV (08:00)
[2018-11-20] MEDS: LEVETIRACETAM 500 MG (PMX) 100 ML IVPB ×2 (08:00→20:27)
[2018-11-20] MEDS: MEROPENEM 1 GM/50ML(PMX) 50 ML IVPB ×2 (08:21→21:37)
[2018-11-20] MEDS: ENOXAPARIN 40 MG/0.4 ML SYG SC (08:25)
[2018-11-20] MEDS: 1/2 NS + KCL 20 MEQ 1,000 ML IV ×2 (11:23→21:32)
[2018-11-20] MEDS: POTASSIUM CHLORIDE 100 ML IVPB ×2 (11:27→14:01)
[2018-11-20 17:18] LABS: INR 0.96; PROTIME 12.9 Sec (11.9-14.9)
[2018-11-20] MEDS: PRIMIDONE 50 MG TAB PO (21:00)
[2018-11-21] MEDS: VANCOMYCIN 500 MG (PMX) 100 ML IVPB ×2 (01:32→14:00)
[2018-11-21] MEDS: ALBUTEROL/IPRATROPIUM (NEB) 3 ML AMP HHN ×4 (01:34→20:16)
[2018-11-21] MEDS: PANTOPRAZOLE 40 MG INJ IV ×2 (05:30→18:26)
[2018-11-21] MEDS: LEVOTHYROXINE 75 MCG TAB PO (05:30)
[2018-11-21 06:00] LABS: AADO2 Arterial 157.5 mmHg (7.0-24.0); Allen Test ACCEPTAB; Arterial Base Excess -3.6 mmol/L (-3.0-3); Arterial Blood Gas Oxygen Sat 93.6 mmHG (95.0-98.0); Arterial COHb 0.3 % (0.0-3.0); Arterial HCO3 19.4 mmol/L (22.0-26.0); Arterial MetHb 0.3 % (0.0-1.5); Arterial pCO2 30.2 mmhg (35-45); MODE NASAL CANNULA; Site Right Radial
[2018-11-21] MEDS: SENNA TAB PO ×2 (07:09→20:41)
[2018-11-21] MEDS: DULOXETINE 30 MG CAP DR PO (07:09)
[2018-11-21] MEDS: BACLOFEN 10 MG TAB PO ×3 (07:09→20:40)
[2018-11-21] MEDS: clonAZEPAM 0.5 MG TAB PO ×2 (07:09→20:40)
[2018-11-21] MEDS: CALCIUM CARBONATE 1.25 GM TAB PO ×2 (07:09→20:41)
[2018-11-21] MEDS: GABAPENTIN 300 MG CAP PO ×3 (07:09→20:41)
[2018-11-21] MEDS: QUETIAPINE 25 MG TAB PO ×2 (07:10→20:41)
[2018-11-21 07:34] LABS: ADD MAN DIFF? NO
[2018-11-21 07:52] LABS: BASOPHILS % 0.3 % (0.0-2.0); EOSINOPHILS % 0.4 % (0.0-7.0); HEMATOCRIT 46.4 % (37.0-47.0); HEMOGLOBIN 14.5 g/dl (12.0-16.0); LYMPHOCYTES # 1.1 10^3/ul (0.8-2.9); LYMPHOCYTES % 16.2 % (15.0-51.0); MEAN CORPUSCULAR HEMOGLOBIN 28.9 pg (29.0-33.0); MEAN CORPUSCULAR HGB CONC 31.3 g/dl (32.0-37.0); MEAN CORPUSCULAR VOLUME 92.4 fl (82.0-101.0); MONOCYTE # 0.5 10^3/ul (0.3-0.9); MONOCYTES % 7.2 % (0.0-11.0); NEUTROPHIL # 5.2 10^3/ul (1.6-7.5); NEUTROPHILS % 75.3 % (39.0-77.0); PLATELET COUNT 257 10^3/UL (140-415); RED BLOOD COUNT 5.02 10^6/ul (4.20-5.40); RED CELL DISTRIBUTION WIDTH 14.4 % (11.5-14.5)
[2018-11-21 07:52] LABS: WHITE BLOOD COUNT 6.9 10^3/ul (4.8-10.8)
[2018-11-21] MEDS: LEVETIRACETAM 500 MG (PMX) 100 ML IVPB ×2 (08:27→20:40)
[2018-11-21] MEDS: METHYLPREDNISOLONE 125 MG INJ IV (08:27)
[2018-11-21 08:32] LABS: ANION GAP 14 (5-13); BLOOD UREA NITROGEN 13 mg/dl (7-20); CALCIUM 9.4 mg/dl (8.4-10.2); CARBON DIOXIDE 20 mmol/L (21-31); CHLORIDE 110 mmol/L (97-110); CREATININE 0.49 mg/dl (0.44-1.00); Estimated GFR > 60 mL/min (>60); GLUCOSE 85 mg/dl (70-220); POTASSIUM 3.9 mmol/L (3.5-5.1); SODIUM 144 mmol/L (135-144)
[2018-11-21] MEDS: MEROPENEM 1 GM/50ML(PMX) 50 ML IVPB ×2 (08:59→21:30)
[2018-11-21] MEDS: 1/2 NS + KCL 20 MEQ 1,000 ML IV (11:00)
[2018-11-21] MEDS ORDERED: PROPOFOL 20 ML (16:27)
[2018-11-21] MEDS: PRIMIDONE 50 MG TAB PO (20:41)
[2018-11-22] MEDS: VANCOMYCIN 500 MG (PMX) 100 ML IVPB (01:03)
[2018-11-22] MEDS: ALBUTEROL/IPRATROPIUM (NEB) 3 ML AMP HHN ×4 (01:27→19:58)
[2018-11-22] MEDS: PANTOPRAZOLE 40 MG INJ IV ×2 (05:25→18:16)
[2018-11-22] MEDS: LEVOTHYROXINE 75 MCG TAB PO (05:25)
[2018-11-22] MEDS: 1/2 NS + KCL 20 MEQ 1,000 ML IV (05:37)
[2018-11-22 06:04] LABS: ADD MAN DIFF? NO
[2018-11-22 06:10] LABS: BASOPHILS % 0.4 % (0.0-2.0); EOSINOPHILS # 0.1 10^3/ul (0.0-0.5); EOSINOPHILS % 0.9 % (0.0-7.0); HEMATOCRIT 46.3 % (37.0-47.0); HEMOGLOBIN 14.6 g/dl (12.0-16.0); LYMPHOCYTES # 1.8 10^3/ul (0.8-2.9); MEAN CORPUSCULAR HEMOGLOBIN 28.8 pg (29.0-33.0); MEAN CORPUSCULAR HGB CONC 31.5 g/dl (32.0-37.0); MEAN CORPUSCULAR VOLUME 91.3 fl (82.0-101.0); MEAN PLATELET VOLUME 10.7 fl (7.4-10.4); MONOCYTE # 0.5 10^3/ul (0.3-0.9); MONOCYTES % 6.5 % (0.0-11.0); NEUTROPHIL # 5.6 10^3/ul (1.6-7.5); NEUTROPHILS % 69.5 % (39.0-77.0); PLATELET COUNT 276 10^3/UL (140-415); RED BLOOD COUNT 5.07 10^6/ul (4.20-5.40); RED CELL DISTRIBUTION WIDTH 14.2 % (11.5-14.5)
[2018-11-22 06:10] LABS: WHITE BLOOD COUNT 8.1 10^3/ul (4.8-10.8)
[2018-11-22 06:32] LABS: PHOSPHORUS 2.2 mg/dl (2.5-4.9)
[2018-11-22 06:32] LABS: MAGNESIUM 1.8 mg/dl (1.7-2.5)
[2018-11-22 06:58] LABS: ALANINE AMINOTRANSFERASE 34 IU/L (13-69); ALBUMIN 3.2 g/dl (3.3-4.9); ALBUMIN/GLOBULIN RATIO 1.03; ALKALINE PHOSPHATASE 83 IU/L (42-121); ANION GAP 13 (5-13); ASPARTATE AMINO TRANSFERASE 16 IU/L (15-46); BILIRUBIN,INDIRECT 0.8 mg/dl (0-1.1); BILIRUBIN,TOTAL 0.8 mg/dl (0.2-1.3); BLOOD UREA NITROGEN 10 mg/dl (7-20); CALCIUM 9.3 mg/dl (8.4-10.2); CARBON DIOXIDE 21 mmol/L (21-31); CHLORIDE 107 mmol/L (97-110); CREATININE 0.46 mg/dl (0.44-1.00); Estimated GFR > 60 mL/min (>60); GLUCOSE 79 mg/dl (70-220); POTASSIUM 3.7 mmol/L (3.5-5.1); SODIUM 141 mmol/L (135-144); TOTAL PROTEIN 6.3 g/dl (6.1-8.1)
[2018-11-22] MEDS: BACLOFEN 10 MG TAB PO ×3 (09:37→21:10)
[2018-11-22] MEDS: CALCIUM CARBONATE 1.25 GM TAB PO ×2 (09:37→21:09)
[2018-11-22] MEDS: GABAPENTIN 300 MG CAP PO ×3 (09:38→21:10)
[2018-11-22] MEDS: SENNA TAB PO ×2 (09:38→21:09)
[2018-11-22] MEDS: clonAZEPAM 0.5 MG TAB PO ×2 (09:38→21:10)
[2018-11-22] MEDS: DULOXETINE 30 MG CAP DR PO (09:39)
[2018-11-22] MEDS: METHYLPREDNISOLONE 125 MG INJ IV (09:42)
[2018-11-22] MEDS: LEVETIRACETAM 500 MG (PMX) 100 ML IVPB ×2 (09:43→21:09)
[2018-11-22] MEDS: MEROPENEM 1 GM/50ML(PMX) 50 ML IVPB ×2 (09:43→21:09)
[2018-11-22] MEDS: ENOXAPARIN 40 MG/0.4 ML SYG SC (09:43)
[2018-11-22] MEDS: QUETIAPINE 25 MG TAB PO ×2 (09:57→21:10)
[2018-11-22] MEDS: PRIMIDONE 50 MG TAB PO (21:09)
[2018-11-23] MEDS: ALBUTEROL/IPRATROPIUM (NEB) 3 ML AMP HHN ×4 (01:27→19:51)
[2018-11-23] MEDS: PANTOPRAZOLE 40 MG INJ IV ×2 (06:28→17:43)
[2018-11-23] MEDS: 1/2 NS + KCL 20 MEQ 1,000 ML IV (06:28)
[2018-11-23] MEDS: LEVOTHYROXINE 75 MCG TAB PO (06:28)
[2018-11-23 06:48] LABS: ADD MAN DIFF? NO
[2018-11-23 06:59] LABS: BASOPHILS % 0.4 % (0.0-2.0); EOSINOPHILS # 0.2 10^3/ul (0.0-0.5); EOSINOPHILS % 2.1 % (0.0-7.0); HEMATOCRIT 46.8 % (37.0-47.0); HEMOGLOBIN 14.8 g/dl (12.0-16.0); LYMPHOCYTES # 2.8 10^3/ul (0.8-2.9); LYMPHOCYTES % 29.5 % (15.0-51.0); MEAN CORPUSCULAR HEMOGLOBIN 29.2 pg (29.0-33.0); MEAN CORPUSCULAR HGB CONC 31.6 g/dl (32.0-37.0); MEAN CORPUSCULAR VOLUME 92.5 fl (82.0-101.0); MEAN PLATELET VOLUME 10.4 fl (7.4-10.4); MONOCYTE # 0.6 10^3/ul (0.3-0.9); MONOCYTES % 6.3 % (0.0-11.0); NEUTROPHIL # 5.7 10^3/ul (1.6-7.5); NEUTROPHILS % 60.9 % (39.0-77.0); PLATELET COUNT 219 10^3/UL (140-415); RED BLOOD COUNT 5.06 10^6/ul (4.20-5.40); RED CELL DISTRIBUTION WIDTH 14.1 % (11.5-14.5)
[2018-11-23 06:59] LABS: WHITE BLOOD COUNT 9.4 10^3/ul (4.8-10.8)
[2018-11-23 07:14] LABS: ALANINE AMINOTRANSFERASE 32 IU/L (13-69); ALBUMIN 3.2 g/dl (3.3-4.9); ALBUMIN/GLOBULIN RATIO 0.94; ALKALINE PHOSPHATASE 75 IU/L (42-121); ANION GAP 6 (5-13); ASPARTATE AMINO TRANSFERASE 19 IU/L (15-46); BILIRUBIN,INDIRECT 0.5 mg/dl (0-1.1); BILIRUBIN,TOTAL 0.5 mg/dl (0.2-1.3); BLOOD UREA NITROGEN 11 mg/dl (7-20); CALCIUM 9.1 mg/dl (8.4-10.2); CARBON DIOXIDE 30 mmol/L (21-31); CHLORIDE 104 mmol/L (97-110); CREATININE 0.45 mg/dl (0.44-1.00); Estimated GFR > 60 mL/min (>60); GLUCOSE 138 mg/dl (70-220); POTASSIUM 3.4 mmol/L (3.5-5.1); SODIUM 140 mmol/L (135-144); TOTAL PROTEIN 6.6 g/dl (6.1-8.1)
[2018-11-23 07:22] LABS: PHOSPHORUS 2.9 mg/dl (2.5-4.9)
[2018-11-23 07:22] LABS: MAGNESIUM 1.7 mg/dl (1.7-2.5)
[2018-11-23] MEDS: LEVETIRACETAM 500 MG (PMX) 100 ML IVPB (08:51)
[2018-11-23] MEDS: ENOXAPARIN 40 MG/0.4 ML SYG SC (08:51)
[2018-11-23] MEDS: MEROPENEM 1 GM/50ML(PMX) 50 ML IVPB ×2 (08:51→22:01)
[2018-11-23] MEDS: METHYLPREDNISOLONE 125 MG INJ IV (08:51)
[2018-11-23] MEDS: DULOXETINE 30 MG CAP DR PO (08:51)
[2018-11-23] MEDS: BACLOFEN 10 MG TAB PO ×3 (08:52→22:01)
[2018-11-23] MEDS: GABAPENTIN 300 MG CAP PO ×3 (08:52→21:00)
[2018-11-23] MEDS: QUETIAPINE 25 MG TAB PO (08:52)
[2018-11-23] MEDS: CALCIUM CARBONATE 1.25 GM TAB PO ×2 (08:52→22:03)
[2018-11-23] MEDS: clonAZEPAM 0.5 MG TAB PO (08:57)
[2018-11-23] MEDS: SENNA TAB PO ×2 (08:57→22:04)
[2018-11-23 13:41] LABS: AADO2 Arterial 289.1 mmHg (7.0-24.0); Allen Test ACCEPTAB; Arterial Base Excess 0.8 mmol/L (-3.0-3); Arterial Blood Gas Oxygen Sat 97.6 mmHG (95.0-98.0); Arterial COHb 0.3 % (0.0-3.0); Arterial Fraction of Oxyhgb 96.9 % (93.0-99.0); Arterial HCO3 26.6 mmol/L (22.0-26.0); Arterial MetHb 0.4 % (0.0-1.5); Arterial pCO2 46.7 mmhg (35-45); MODE MASK - SIMPLE; Site Right Radial
[2018-11-23] MEDS: FLUMAZENIL 0.5 MG INJ IV (15:09)
[2018-11-23] MEDS ORDERED: POTASSIUM CHLORIDE 20 MEQ POWDER FOR ORAL SOLN GTB (18:30)
[2018-11-23] MEDS: POTASSIUM CHLORIDE 20 MEQ POWDER FOR ORAL SOLN GTB (22:01)
[2018-11-23] MEDS: PRIMIDONE 50 MG TAB PO (22:01)
[2018-11-23] MEDS: LEVETIRACETAM (100 MG/ML) 5ML CUP GTB (22:01)
[2018-11-24] MEDS: ALBUTEROL/IPRATROPIUM (NEB) 3 ML AMP HHN ×4 (01:48→20:06)
[2018-11-24] MEDS: PANTOPRAZOLE 40 MG INJ IV ×2 (05:10→18:34)
[2018-11-24] MEDS: LEVOTHYROXINE 75 MCG TAB PO (05:10)
[2018-11-24 06:45] LABS: ADD MAN DIFF? NO
[2018-11-24 06:52] LABS: WHITE BLOOD COUNT 8.8 10^3/ul (4.8-10.8)
[2018-11-24 06:52] LABS: BASOPHILS % 0.5 % (0.0-2.0); EOSINOPHILS # 0.3 10^3/ul (0.0-0.5); EOSINOPHILS % 2.9 % (0.0-7.0); HEMATOCRIT 47.4 % (37.0-47.0); HEMOGLOBIN 14.9 g/dl (12.0-16.0); LYMPHOCYTES # 2.6 10^3/ul (0.8-2.9); LYMPHOCYTES % 29.8 % (15.0-51.0); MEAN CORPUSCULAR HEMOGLOBIN 28.8 pg (29.0-33.0); MEAN CORPUSCULAR HGB CONC 31.4 g/dl (32.0-37.0); MEAN CORPUSCULAR VOLUME 91.5 fl (82.0-101.0); MEAN PLATELET VOLUME 10.3 fl (7.4-10.4); MONOCYTE # 0.4 10^3/ul (0.3-0.9); MONOCYTES % 4.5 % (0.0-11.0); NEUTROPHIL # 5.4 10^3/ul (1.6-7.5); NEUTROPHILS % 61.3 % (39.0-77.0); PLATELET COUNT 196 10^3/UL (140-415); RED BLOOD COUNT 5.18 10^6/ul (4.20-5.40)
[2018-11-24 07:18] LABS: ALANINE AMINOTRANSFERASE 30 IU/L (13-69); ALBUMIN 2.9 g/dl (3.3-4.9); ALBUMIN/GLOBULIN RATIO 0.87; ALKALINE PHOSPHATASE 70 IU/L (42-121); ANION GAP 4 (5-13); ASPARTATE AMINO TRANSFERASE 18 IU/L (15-46); BILIRUBIN,INDIRECT 0.3 mg/dl (0-1.1); BILIRUBIN,TOTAL 0.3 mg/dl (0.2-1.3); BLOOD UREA NITROGEN 12 mg/dl (7-20); CALCIUM 8.8 mg/dl (8.4-10.2); CARBON DIOXIDE 30 mmol/L (21-31); CHLORIDE 105 mmol/L (97-110); CREATININE 0.41 mg/dl (0.44-1.00); Estimated GFR > 60 mL/min (>60); GLUCOSE 123 mg/dl (70-220); SODIUM 139 mmol/L (135-144); TOTAL PROTEIN 6.2 g/dl (6.1-8.1)
[2018-11-24 07:23] LABS: MAGNESIUM 1.7 mg/dl (1.7-2.5)
[2018-11-24 07:23] LABS: PHOSPHORUS 2.1 mg/dl (2.5-4.9)
[2018-11-24 08:09] LABS: POTASSIUM 3.7 mmol/L (3.5-5.1)
[2018-11-24] MEDS: POTASSIUM CHLORIDE 20 MEQ POWDER FOR ORAL SOLN GTB (09:59)
[2018-11-24] MEDS: BACLOFEN 10 MG TAB PO ×3 (09:59→22:28)
[2018-11-24] MEDS: DULOXETINE 30 MG CAP DR PO (10:00)
[2018-11-24] MEDS: GABAPENTIN 300 MG CAP PO ×3 (10:00→22:28)
[2018-11-24] MEDS: SENNA TAB PO ×2 (10:00→22:28)
[2018-11-24] MEDS: MEROPENEM 1 GM/50ML(PMX) 50 ML IVPB ×2 (10:00→22:27)
[2018-11-24] MEDS: LEVETIRACETAM (100 MG/ML) 5ML CUP GTB ×2 (10:00→22:27)
[2018-11-24] MEDS: METHYLPREDNISOLONE 125 MG INJ IV (10:00)
[2018-11-24] MEDS: CALCIUM CARBONATE 1.25 GM TAB PO ×2 (10:00→22:28)
[2018-11-24] MEDS: ENOXAPARIN 40 MG/0.4 ML SYG SC (10:19)
[2018-11-24] MEDS: PRIMIDONE 50 MG TAB PO (22:28)
[2018-11-25] MEDS: ALBUTEROL/IPRATROPIUM (NEB) 3 ML AMP HHN ×4 (01:12→19:27)
[2018-11-25] MEDS: LEVOTHYROXINE 75 MCG TAB PO (05:36)
[2018-11-25] MEDS: PANTOPRAZOLE 40 MG INJ IV (05:36)
[2018-11-25 07:11] LABS: ADD MAN DIFF? NO; BASOPHILS % 0.4 % (0.0-2.0); EOSINOPHILS # 0.2 10^3/ul (0.0-0.5); EOSINOPHILS % 2.3 % (0.0-7.0); HEMATOCRIT 48.9 % (37.0-47.0); HEMOGLOBIN 15.6 g/dl (12.0-16.0); MEAN CORPUSCULAR HEMOGLOBIN 29.1 pg (29.0-33.0); MEAN CORPUSCULAR HGB CONC 31.9 g/dl (32.0-37.0); MEAN CORPUSCULAR VOLUME 91.1 fl (82.0-101.0); MEAN PLATELET VOLUME 10.8 fl (7.4-10.4); MONOCYTE # 0.5 10^3/ul (0.3-0.9); NEUTROPHIL # 6.4 10^3/ul (1.6-7.5); NEUTROPHILS % 69.3 % (39.0-77.0); PLATELET COUNT 186 10^3/UL (140-415); RED BLOOD COUNT 5.37 10^6/ul (4.20-5.40); RED CELL DISTRIBUTION WIDTH 14.4 % (11.5-14.5)
[2018-11-25 07:11] LABS: WHITE BLOOD COUNT 9.3 10^3/ul (4.8-10.8)
[2018-11-25 07:38] LABS: PHOSPHORUS 1.8 mg/dl (2.5-4.9)
[2018-11-25 07:38] LABS: ANION GAP 4 (5-13); BLOOD UREA NITROGEN 16 mg/dl (7-20); CALCIUM 8.9 mg/dl (8.4-10.2); CARBON DIOXIDE 33 mmol/L (21-31); CHLORIDE 103 mmol/L (97-110); CREATININE 0.37 mg/dl (0.44-1.00); Estimated GFR > 60 mL/min (>60); GLUCOSE 131 mg/dl (70-220); POTASSIUM 3.9 mmol/L (3.5-5.1); SODIUM 140 mmol/L (135-144)
[2018-11-25] MEDS: GABAPENTIN 300 MG CAP PO ×3 (08:29→22:09)
[2018-11-25] MEDS: BACLOFEN 10 MG TAB PO ×3 (08:29→22:08)
[2018-11-25] MEDS: CALCIUM CARBONATE 1.25 GM TAB PO ×2 (08:29→22:09)
[2018-11-25] MEDS: LEVETIRACETAM (100 MG/ML) 5ML CUP GTB ×2 (08:29→22:08)
[2018-11-25] MEDS: MEROPENEM 1 GM/50ML(PMX) 50 ML IVPB (08:30)
[2018-11-25] MEDS: DULOXETINE 30 MG CAP DR PO (08:30)
[2018-11-25] MEDS: METHYLPREDNISOLONE 125 MG INJ IV (08:30)
[2018-11-25] MEDS: POTASSIUM CHLORIDE 20 MEQ POWDER FOR ORAL SOLN GTB (08:30)
[2018-11-25] MEDS: SENNA TAB PO ×2 (08:37→22:09)
[2018-11-25] MEDS: ENOXAPARIN 40 MG/0.4 ML SYG SC (08:56)
[2018-11-25] MEDS: PANTOPRAZOLE (EC) 40 MG TAB PO (18:18)
[2018-11-25] MEDS: PRIMIDONE 50 MG TAB PO (22:09)
[2018-11-26] MEDS: ALBUTEROL/IPRATROPIUM (NEB) 3 ML AMP HHN ×3 (01:17→14:00)
[2018-11-26] MEDS: PANTOPRAZOLE (EC) 40 MG TAB PO (06:26)
[2018-11-26] MEDS: LEVOTHYROXINE 75 MCG TAB PO (06:26)
[2018-11-26] MEDS: ACETAMINOPHEN 325 MG TAB PO (09:21)
[2018-11-26] MEDS: SENNA TAB PO (09:21)
[2018-11-26] MEDS: POTASSIUM CHLORIDE 20 MEQ POWDER FOR ORAL SOLN GTB (09:22)
[2018-11-26] MEDS: GABAPENTIN 300 MG CAP PO ×2 (09:22→15:07)
[2018-11-26] MEDS: predniSONE 10 MG TAB PO (09:22)
[2018-11-26] MEDS: DULOXETINE 30 MG CAP DR PO (09:22)
[2018-11-26] MEDS: BACLOFEN 10 MG TAB PO ×2 (09:22→15:07)
[2018-11-26] MEDS: CALCIUM CARBONATE 1.25 GM TAB PO (09:22)
[2018-11-26] MEDS: LEVETIRACETAM (100 MG/ML) 5ML CUP GTB (09:23)
[2018-11-26] MEDS: ENOXAPARIN 40 MG/0.4 ML SYG SC (09:51)
[2018-11-26] MEDS ORDERED: HYDROCODONE/APAP (7.5/325) TAB GTB (12:00)
[2018-11-28] MEDS ORDERED: QUETIAPINE 25 MG TAB PO ×2 (09:00)
[2018-12-02] MEDS ORDERED: clonAZEPAM 0.5 MG TAB PO (09:00)
== END 2018-11-26 18:17 | DRG 177 ==
LOC: TEL 11-15 03:01 → E/R 16:45 → TEL 19:47
PROC: 0DH63UZ Insertion of Feeding Device into Stomach, Percutaneous Approach (ICD-10-PCS; principal; 2018-11-21 16:00)
PROC: 0DB68ZX Excision of Stomach, Via Natural or Artificial Opening Endoscopic, Diagnostic (ICD-10-PCS; 2018-11-21 16:00)
PROC: 30233N1 Transfusion of Nonautologous Red Blood Cells into Peripheral Vein, Percutaneous Approach (ICD-10-PCS; 2018-11-21 16:10)
PROC: 3E0F7GC Introduction of Other Therapeutic Substance into Respiratory Tract, Via Natural or Artificial Opening (ICD-10-PCS; 2018-11-21 16:10)
DX: J69.0 Pneumonitis due to inhalation of food and vomit (principal); G82.50 Quadriplegia, unspecified; J96.21 Acute and chronic respiratory failure with hypoxia; J44.1 Chronic obstructive pulmonary disease with (acute) exacerbation; N39.0 Urinary tract infection, site not specified; I69.352 Hemiplegia and hemiparesis following cerebral infarction affecting left dominant side; G93.40 Encephalopathy, unspecified; R13.10 Dysphagia, unspecified; J84.10 Pulmonary fibrosis, unspecified; Z99.81 Dependence on supplemental oxygen; D64.9 Anemia, unspecified; E86.0 Dehydration; B96.20 Unspecified Escherichia coli [E. coli] as the cause of diseases classified elsewhere; K29.50 Unspecified chronic gastritis without bleeding; G40.909 Epilepsy, unspecified, not intractable, without status epilepticus; E03.9 Hypothyroidism, unspecified; E87.6 Hypokalemia; R62.7 Adult failure to thrive; K31.9 Disease of stomach and duodenum, unspecified; Z16.12 Extended spectrum beta lactamase (ESBL) resistance; Z68.23 Body mass index [BMI] 23.0-23.9, adult; Z86.718 Personal history of other venous thrombosis and embolism; Z79.01 Long term (current) use of anticoagulants
CPT/HCPCS: 36415; 36430; 36573; 36600; 70450; 71045; 71250; 80048; 80053; 80202; 81001; 82270; 82728; 82803; 83540; 83690; 83735; 84100; 84484; 85025; 85610; 86850; 86900; 86901; 86920; 87040-91; 87086; 92526; 92610; 93005; 93971; 94640; 94644; 94664; 94668; 94669; 96374; 96375; 99285-25